=== PATIENT | female | born 1955 | race Caucasian/White ===

== ENCOUNTER 2017-06-07 11:26 | Emergency (ER) | payer BC ==
--- NOTE | 2017-06-07 12:35 | ED ---
Lower Extremity Injury HPI - General Chief Complaint: Extremity Injury, Lower Stated Complaint: RT ANKLE INJURY Time Seen by Provider: 06/07/17 12:07 Source: patient Mode of arrival: wheelchair Limitations: no limitations - History of Present Illness Initial Comments: This is a 61 year old female who presents with right ankle pain which began after the patient fell on the stairs at approximately 8:15 this morning. The patient states that she heard and felt a "crack" noise at her ankle when she fell. She states the pain is localized to the lateral aspect of her right ankle. She denies head injury or any additional injury with this fall. She is able to ambulate, but with pain. - Related Data Allergies Allergy/AdvReac Type Severity Reaction Status Date / Time No Known Allergies Allergy Verified 06/07/17 11:48 Review of Systems ROS Statement: Those systems with pertinent positive or pertinent negative responses have been documented in the HPI. ROS Other: All systems not noted in ROS Statement are negative. Past Medical History Past Medical History: Hypertension History of Any Multi-Drug Resistant Organisms: None Reported Past Surgical History: Hysterectomy Past Psychological History: No Psychological Hx Reported Smoking Status: Never smoker Past Alcohol Use History: None Reported Past Drug Use History: None Reported General Exam Limitations: no limitations General appearance: alert, in no apparent distress Head exam: Present: atraumatic, normocephalic, normal inspection Eye exam: Present: normal appearance, PERRL, EOMI. Absent: scleral icterus, conjunctival injection, periorbital swelling Respiratory exam: Present: normal lung sounds bilaterally. Absent: respiratory distress, wheezes, rales, rhonchi, stridor Cardiovascular Exam: Present: regular rate, normal rhythm, normal heart sounds. Absent: systolic murmur, diastolic murmur, rubs, gallop, clicks Extremities exam: Present: other (Neurovascular grossly intact. The patient has bilateral lower extremity edema. There is no notable ecchymoses present. Tender to palpation over the right lateral malleolus. Pain in the right lateral ankle with flexion, extension, inversion and eversion of the right foot. no proximal tib/fib tenderness) Neurological exam: Present: alert Psychiatric exam: Present: normal affect, normal mood Skin exam: Present: warm, dry, intact, normal color. Absent: rash Course Vital Signs 06/07/17 11:45 Temperature 97.7 F Pulse Rate 80 Respiratory 20 Rate Blood Pressure 171/88 O2 Sat by Pulse 99 Oximetry Procedures - Orthopedic Splinting/Casting Injury #1 Side: right Lower Extremity Injury Location: short leg, ankle Lower Extremity Immobilizer: posterior splint, synthetic pre-padded splint Other Orthopedic Equipment: walker Additional Comments: Neurovascular intact before and after procedure Medical Decision Making - Medical Decision Making 61-year-old female presented for a fall. Patient's x-rays were reviewed and shows fibular fracture, severe degenerative changes. Patient was splinted it is will follow-up with Dr. Morfin as she seen in the past. Patient will use a walker that she has at home. Disposition Clinical Impression: Closed right ankle fracture Disposition: HOME SELF-CARE Condition: Stable Instructions: Ankle Fracture (ED) Additional Instructions: Please return to the Emergency Department if symptoms worsen or any other concerns. Referrals: Jay Hazel DO [Primary Care Provider] - 1-2 days Delroy Morfin DO [Doctor of Osteopathic Medicine] - 1-2 days Time of Disposition: 13:06
[2017-06-07 13:17] VITALS: BP 165/80; PULSE 86; RESP 18; TEMP 97.8
--- NOTE | 2017-06-07 13:18 | XR ---
Right foot and right ankle HISTORY: Trauma and pain 3 views of the right foot and 3 views of the right ankle are submitted. No comparisons Degenerative changes present at the metatarsophalangeal joint of the first digit. Marked soft tissue swelling noted at the right ankle. Ossific densities about the right ankle are well-corticated and no t felt likely to be acute. Spurring at the tibiotalar joint is present. There is a vague lucency pres ent within the distal metaphysis of the right fibula suspicious for possible nondisplaced fracture. T here is no dislocation. There is a plantar calcaneal spur. Spurring present at the intertarsal joints . There is an enthesophyte present at the insertion of the Achilles tendon. IMPRESSION: Difficult to exclude hairline fracture distal fibula. There is soft tissue swelling prese nt. Degenerative changes. No dislocation.
== END 2017-06-07 13:18 | disposition home or self-care (01) ==
LOC: EC 11:26
DX: S82.831A Other fracture of upper and lower end of right fibula, initial encounter for closed fracture (principal); W10.9XXA Fall (on) (from) unspecified stairs and steps, initial encounter
CPT/HCPCS: 29515; 99283

== ENCOUNTER → 2018-01-19 | Outpatient (CLI) | payer BC ==
--- NOTE | 2018-01-22 13:37 | MM ---
Reason for exam: screening (asymptomatic). Last mammogram was performed 2 years and 2 months ago. History: Patient is postmenopausal and is nulliparous. Core biopsy of the right breast. 2 excisional biopsies of the right breast. Physical Findings: A clinical breast exam by your physician is recommended on an annual basis and results should be correlated with mammographic findings. MG 3D Screening Mammo W/Cad Bilateral CC and MLO view(s) were taken. Prior study comparison: November 17, 2015, bilateral MG screening mammo w CAD. February 18, 2013, bilateral digital screening mammo w/CAD. The breast tissue is heterogeneously dense. This may lower the sensitivity of mammography. Benign calcifications in the left breast. There is chronic nodularity bilaterally. No significant changes when compared with prior studies. ASSESSMENT: Benign, BI-RAD 2 RECOMMENDATION: Routine screening mammogram of both breasts in 1 year.
== END | disposition home or self-care (01) ==
LOC: RADMAMWWP 09:27
PROVIDERS: ATTEND Family Medicine
DX: Z12.31 Encounter for screening mammogram for malignant neoplasm of breast (principal)
CPT/HCPCS: 77063; 77067

== ENCOUNTER → 2018-02-09 | Outpatient (CLI) | payer BC | END | disposition home or self-care (01) | LOC: RADBDWWP 07:09 | PROVIDERS: ATTEND Family Medicine | DX: Z53.9 Procedure and treatment not carried out, unspecified reason (principal) ==

== ENCOUNTER → 2018-02-12 | Outpatient (CLI) | payer BC ==
--- NOTE | 2018-02-13 18:07 | BD ---
EXAMINATION TYPE: Axial Bone Density DATE OF EXAM: 02/12/2018 COMPARISON: NONE CLINICAL HISTORY: 57-year-old female with OA, postmenopausal screening Height: 65.5 Weight: 287.9 FRAX RISK QUESTIONS: Alcohol (3 or more units per day): no Family History (Parent hip fracture): mother Glucocorticoids (More than 3mos): no (Ex: prednisone, prednisolone, methylprednisolone, dexamethasone, and hydrocortisone). History of Fracture in Adulthood: yes Secondary Osteoporosis: 1. Type 1 Diabetes: no 2. Hyperthyroidism: no 3. Menopause before 45: no 4. Malnutrition: no 5. Chronic liver disease: no Rheumatoid Arthritis: no Current Tobacco Use: no RISK FACTORS HISTORY OF: Active: sometimes Diet low in dairy products/other sources of calcium: no Postmenopausal woman: 5 years ago Lost more than 2 inches in height since high school: yes MEDICATIONS: blood pressure meds Additional History: EXAM MEASUREMENTS: Bone mineral densitometry was performed using the [employer]. Bone mineral density as measured about the Lumbar spine is: ----- L1-L4(G/cm2): 1.340 T Score Values are as follows: ----- L2: 1.0 ----- L3: 2.0 ----- L4: 2.4 ----- L1-L4: 1.3 Bone mineral density has: increased5.8 % since study of: 02.18.2013 Bone mineral density about the R hip (g/cm2): 0.950 Bone mineral density about the L hip (g/cm2): 0.926 T Score values are as follows: -----R Neck: -0.6 -----L Neck: -0.8 -----R Total: 0.3 -----L Total: 0.3 Bone mineral density has: decreased-1.1 % since study of: 02.18.2013 IMPRESSION: Normal (Values between +1 and -1 indicate normal bone mass). Consider repeating this study in 5 year s or sooner if there is some new clinical indication. NOTE: T-SCORE=SD OF THE YOUNG ADULT MEAN.
== END | disposition home or self-care (01) ==
LOC: RADBDWWP 10:44
PROVIDERS: ATTEND Family Medicine
DX: M19.90 Unspecified osteoarthritis, unspecified site (principal)
CPT/HCPCS: 77080

== ENCOUNTER 2018-07-02 13:00 | Emergency (ER) | payer BC ==
[2018-07-02 13:09] VITALS: BP 151/98; PULSE 88; RESP 18; TEMP 97.3
--- NOTE | 2018-07-02 13:24 | ED ---
Fall HPI - General Chief Complaint: Fall Stated Complaint: Fall, leg injury Time Seen by Provider: 07/02/18 13:18 Source: patient, RN notes reviewed Mode of arrival: ambulatory Limitations: no limitations - History of Present Illness Initial Comments: 62-year-old female presented emergency department with chief complaint of right knee right ankle injury. Patient states that she slipped on the ice falling onto that side. She complains of lateral right ankle pain. Patient states she had a fracture 1 year ago of the same ankle. Patient states her repeat physician is Dr. Morfin. She denies any head injury no hip pain. Patient offers no other complaints. - Related Data Allergies Allergy/AdvReac Type Severity Reaction Status Date / Time No Known Allergies Allergy Verified 07/02/18 13:09 Review of Systems ROS Statement: Those systems with pertinent positive or pertinent negative responses have been documented in the HPI. ROS Other: All systems not noted in ROS Statement are negative. Past Medical History Past Medical History: Hypertension History of Any Multi-Drug Resistant Organisms: None Reported Past Surgical History: Hysterectomy Past Psychological History: No Psychological Hx Reported Smoking Status: Never smoker Past Alcohol Use History: None Reported Past Drug Use History: None Reported General Exam Limitations: no limitations General appearance: alert, in no apparent distress Head exam: Present: atraumatic, normocephalic, normal inspection Neck exam: Present: normal inspection, full ROM. Absent: tenderness, meningismus, lymphadenopathy Respiratory exam: Present: normal lung sounds bilaterally. Absent: respiratory distress, wheezes, rales, rhonchi, stridor Cardiovascular Exam: Present: regular rate, normal rhythm, normal heart sounds. Absent: systolic murmur, diastolic murmur, rubs, gallop, clicks Extremities exam: Present: other (Right knee there is tenderness to lateral posterior portion over the fibular head region, right ankle tenderness with evidence of swelling neurovascular intact no foot tenderness.) Neurological exam: Present: alert, oriented X3, CN II-XII intact Skin exam: Present: warm, dry, intact, normal color. Absent: rash Course Vital Signs 07/02/18 13:06 Temperature 97.3 F L Pulse Rate 88 Respiratory 18 Rate Blood Pressure 151/98 O2 Sat by Pulse 98 Oximetry Medical Decision Making - Medical Decision Making 62-year-old female presented emergency from for right ankle, right knee injury. Patient had x-rays which shows evidence of right fibula fracture. Patient was placed in her walking boot that she had for her prior fracture. Disposition Clinical Impression: Fall, Right fibular fracture Disposition: HOME SELF-CARE Condition: Stable Instructions (If sedation given, give patient instructions): Leg Fracture (ED) Additional Instructions: Please return to the Emergency Department if symptoms worsen or any other concerns. Is patient prescribed a controlled substance at d/c from ED?: No Referrals: Jay Hazel DO [Primary Care Provider] - 1-2 days Delroy Morfin DO [Doctor of Osteopathic Medicine] - 1-2 days Time of Disposition: 14:39
--- NOTE | 2018-07-02 13:46 | XR ---
EXAMINATION TYPE: XR knee complete RT DATE OF EXAM: 07/02/2018 COMPARISON: NONE HISTORY: Pain TECHNIQUE: Four views are submitted. FINDINGS: Hypertrophic change and narrowing patellofemoral joint. Small amount of fluid in the suprapatellar bu rsa. Small density overlying the joint space could represent small loose body. No definite fracture l ine. Osseous structures are intact. No acute fracture seen. IMPRESSION: 1. No acute fracture or dislocation. 2. Arthropathy.
--- NOTE | 2018-07-02 13:49 | XR ---
EXAMINATION TYPE: XR ankle complete RT DATE OF EXAM: 07/02/2018 COMPARISON: 06/07/2017 HISTORY: Pain FINDINGS: Three views of the ankle demonstrate extensive soft tissue edema. There is be a mildly displaced frac ture involving the distal fibula. Soft tissue ossification evidence of previous trauma involving the medial malleolus. There is narrowing of the ankle mortise. Large calcaneal spurs are noted. IMPRESSION: 1. There is a comminuted minimally displaced fracture involving the distal fibula 2. Extensive soft tissue edema.
== END 2018-07-02 15:03 | disposition home or self-care (01) ==
LOC: EC 13:00
DX: S82.401A Unspecified fracture of shaft of right fibula, initial encounter for closed fracture (principal); W00.0XXA Fall on same level due to ice and snow, initial encounter; Y92.009 Unspecified place in unspecified non-institutional (private) residence as the place of occurrence of the external cause
CPT/HCPCS: 99283

== ENCOUNTER → 2018-11-02 | Outpatient (CLI) | payer BC ==
--- NOTE | 2018-11-02 19:53 | EST ---
EXERCISE STRESS AGE: 62 SEX: Female HT: 5'7" WT: 282 pounds PROTOCOL: Kevin STAGE: I DURATION OF EXERCISE: 3:09 HEART RATE REST: 69 BLOOD PRESSURE REST: 147/63 MAXIMUM HEART RATE ACHIEVED: 107 MAXIMUM BLOOD PRESSURE: 202/64 85% MPHR: 135 100% MPHR: 159 METS: 4.6 INDICATIONS: Chest pain, hypertension. CLINICAL INFORMATION: Baseline rhythm is a sinus mechanism, rate of 69, normal axis, poor R-wave progression, minor nonspecific ST-T wave changes. Baseline blood pressure 147/63 mmHg. Patient exercised on Kevin protocol for 3 minutes 9 seconds, reaching a peak rate of 107 beats per minute, which is equal to 67% of maximum predicted heart rate. Peak blood pressure 202/64 mmHg. Test was terminated secondary to fatigue. There was no chest pain. Electrocardiograph monitoring revealed no evidence of diagnostic ischemic ST deviation. CONCLUSION: 1. Poor exercise tolerance. 2. Non-diagnostic electrocardiograph stress testing secondary to the inability to achieve 85% of maximum predicted heart rate. 3. If clinically indicated, a pharmacological stress test will be helpful. MMODL / IJN: [id number] /
== END | disposition home or self-care (01) ==
LOC: RADNMMAIN 10:15
PROVIDERS: ATTEND Family Medicine
DX: R07.9 Chest pain, unspecified (principal)
CPT/HCPCS: 93017

== ENCOUNTER → 2018-11-30 | Outpatient (CLI) | payer BC ==
[~2018-11-30] MED LIST: REGADENOSON 0.4 MG/5 ML SYRINGE IV ONE
--- NOTE | 2018-11-30 11:12 | NM ---
EXAMINATION TYPE: NM stress lexiscan cardiolite DATE OF EXAM: 11/30/2018 COMPARISON: NONE HISTORY: Chest pain TECHNIQUE: After the intravenous administration of 9.9 mCi Tc 99m Sestamibi - Cardiolite resting SPE CT images acquired 50 minutes post injection. The patient received 0.4mg Lexiscan, 26.3 mCi Tc 99m Sestamibi - Stress images obtained [address] injection FINDINGS: Review of stress and rest SPECT images demonstrates no distinct perfusion abnormality. Gated analysi s shows normal wall motion with an estimated left ventricular ejection fraction of 59 %. IMPRESSION: No scintigraphic evidence for reversible ischemia.
--- NOTE | 2018-11-30 11:37 | ECHOF ---
Referral Reason:R07.9 Chest Pain, I10 Hypertension MEASUREMENTS -------- HEIGHT: 167.6 cm WEIGHT: 127.0 kg BP: IVSd: 1.1 cm (0.6 - 1.1) LVIDd: 4.8 cm (3.9 - 5.3) LVPWd: 1.2 cm (0.6 - 1.1) IVSs: 2.1 cm LVIDs: 2.2 cm LVPWs: 1.6 cm LAESV Index (A-L): 28.02 ml/m Ao Diam: 3.0 cm (2.0 - 3.7) AV Cusp: 2.1 cm (1.5 - 2.6) LA Diam: 3.2 cm (2.7 - 3.8) MV EXCURSION: 15.965 mm (> 18.000) MV EF SLOPE: 109 mm/s (70 - 150) EPSS: 1.1 cm MV E Asm: 0.76 m/s MV DecT: 280 ms MV A Sam: 0.84 m/s MV E/A Ratio: 0.90 RAP: 15.00 mmHg RVSP: 29.00 mmHg FINDINGS -------- Sinus rhythm. This was a technically adequate study. The left ventricular size is normal. There is borderline concentric left ventricular hypertrophy. Overall left ventricular systolic function is normal with, an EF between 55 - 60 %. The right ventricle is normal in size. The left atrial size is normal. Normal LA size by volume 22+/-6 ml/m2. The right atrial size is normal. The aortic valve is trileaflet and appears structurally normal. The mitral valve is normal. There is trace mitral regurgitation. The tricuspid valve appears structurally normal. Trace tricuspid regurgitation present. Right sherry tricular systolic pressure is normal at < 35 mmHg. There is no pulmonic regurgitation present. The aortic root size is normal. The inferior vena cava is mildly dilated. There is no pericardial effusion. CONCLUSIONS -------- 1. Sinus rhythm. 2. This was a technically adequate study. 3. The left ventricular size is normal. 4. There is borderline concentric left ventricular hypertrophy. 5. Overall left ventricular systolic function is normal with, an EF between 55 - 60 %. 6. The right ventricle is normal in size. 7. The left atrial size is normal. 8. Normal LA size by volume 22+/-6 ml/m2. 9. The right atrial size is normal. 10. The aortic valve is trileaflet and appears structurally normal. 11. The mitral valve is normal. 12. There is trace mitral regurgitation. 13. The tricuspid valve appears structurally normal. 14. Trace tricuspid regurgitation present. 15. Right ventricular systolic pressure is normal at < 35 mmHg. 16. There is no pulmonic regurgitation present. 17. The aortic root size is normal. 18. The inferior vena cava is mildly dilated. 19. There is no pericardial effusion. REFUND CLERK: Katie Dumont RDCS
--- NOTE | 2018-11-30 11:58 | P.STRESS ---
- Stress Test Note Stress Test Results/Findings: Exam Performed: NM stress lexiscan cardiolite Exam Date: 11/30/18 Reason for Exam: Hypertension Height: 5 ft 7 in Weight: 127.006 kg Protocol: Lexiscan Stage: na Duration of Exercise: na Resting Heart Rate: 57 Resting Blood Pressure: 136/79 Maximum Achieved Heart Rate: 72 Maximum Achieved Blood Pressure: 143/79 85% PMHR: 134 100% PMHR: 158 METS: na Technologist Comment: Stress Test Results/Findings: This is a 63-year-old female with history of hypertension and family history being evaluated for cardiac status. Stress data: Baseline EKG showed sinus rhythm with normal [place] interval, QRS duration. Blood pressure at rest is 136/79 with pulse rate of 57. A standard dose of Lexiscan was infused. EKGs taken during and after the infusion did not reveal significant changes from the baseline. Final impression: #1. Negative Lexiscan stress test #2. Report on the nuclear images to be given by the radiologist
--- NOTE | 2018-12-03 14:00 | EST ---
Stress Test Results/Findings: Exam Performed: NM stress lexiscan cardiolite Exam Date: 11/30/18 Reason for Exam: Hypertension Height: 5 ft 7 in Weight: 127.006 kg Protocol: Lexiscan Stage: na Duration of Exercise: na Resting Heart Rate: 57 Resting Blood Pressure: 136/79 Maximum Achieved Heart Rate: 72 Maximum Achieved Blood Pressure: 143/79 85% PMHR: 134 100% PMHR: 158 METS: na Technologist Comment: Stress Test Results/Findings: This is a 63-year-old female with history of hypertension and family history being evaluated for cardiac status. Stress data: Baseline EKG showed sinus rhythm with normal [place] interval, QRS duration. Blood pressure at rest is 136/79 with pulse rate of 57. A standard dose of Lexiscan was infused. EKGs taken during and after the infusion did not reveal significant changes from the baseline. Final impression: #1. Negative Lexiscan stress test #2. Report on the nuclear images to be given by the radiologist DAVID
== END | disposition home or self-care (01) ==
LOC: RADNMMAIN 08:00
PROVIDERS: ATTEND Family Medicine
DX: I51.7 Cardiomegaly (principal)
CPT/HCPCS: 93017; 93306; 78452; A9500; J2785

== ENCOUNTER 2019-10-10 15:22 | Emergency (ER) | payer BC ==
[2019-10-10 15:33] VITALS: BP 137/77; PULSE 90; RESP 18; TEMP 98.2
--- NOTE | 2019-10-10 16:55 | XR ---
Right knee HISTORY: Right knee pain 3 views of the right knee, correlation prior exam 07/02/2018 There is spurring at the patellofemoral joint, small ossific density present at the level of the inte rcondylar notch is noted, possibly secondary loose body on the oblique view. Alignment is normal and medial lateral compartments show normal joint spaces, minimal spurring in the medial compartment. No evident joint effusion. No fracture or dislocation. There is no fracture or dislocation. Bone mineralization is reduced. IMPRESSION: Osteoarthritis. Possible loose bodies.
--- NOTE | 2019-10-10 17:10 | ED ---
General Adult HPI - General Chief complaint: Extremity Injury, Lower Stated complaint: knee pain/gave out Time Seen by Provider: 10/10/19 15:30 Source: patient, RN notes reviewed, old records reviewed Mode of arrival: wheelchair Limitations: no limitations - History of Present Illness Initial comments: This is a 63-year-old female presents to the emergency department complaining of right knee pain. Patient states a week ago it gave away on her but since then she's been able to ambulate fine without any problem. Patient states today she was walking and felt a pain just below her kneecap on the right knee and felt as though it made a cracking sound. Patient states since then she has felt weak and that knee. Patient states she's hesitant to put full weight bearing on that knee. Patient states she does have a walker at home. Patient states she did not fall earlier. Patient denies any other injury or pain at this time - Related Data Allergies Allergy/AdvReac Type Severity Reaction Status Date / Time No Known Allergies Allergy Verified 10/10/19 15:32 Review of Systems ROS Statement: Those systems with pertinent positive or pertinent negative responses have been documented in the HPI. ROS Other: All systems not noted in ROS Statement are negative. Past Medical History Past Medical History: Hypertension History of Any Multi-Drug Resistant Organisms: None Reported Past Surgical History: Hysterectomy Past Psychological History: No Psychological Hx Reported Smoking Status: Never smoker Past Alcohol Use History: None Reported Past Drug Use History: None Reported General Exam - General Exam Comments Initial Comments: GENERAL Patient is well-developed and well-nourished. Patient is in mild distress. EYES Patient's pupils are equal and round. Extraocular motion is intact SKIN Unremarkable NEURO The patient is alert and oriented 3 PYSCH Patient has normal interpersonal interactions. MUSCULOSKELETAL Just below the right patellar in the patellar tendon area patient has tenderness to palpation. There is no ligament laxity noted. Limitations: no limitations Course Vital Signs 10/10/19 15:29 Temperature 98.2 F Pulse Rate 90 Respiratory 18 Rate Blood Pressure 137/77 O2 Sat by Pulse 97 Oximetry Disposition Clinical Impression: Knee sprain Disposition: HOME SELF-CARE Instructions (If sedation given, give patient instructions): Knee Sprain (ED) Additional Instructions: Patient should use a walker and weight-bear as tolerated. Patient should follow-up with her primary medical care doctor. Patient can take Motrin when necessary for pain. Is patient prescribed a controlled substance at d/c from ED?: No Referrals: Jay Hazel DO [Primary Care Provider] - 1-2 days Time of Disposition: 17:10
== END 2019-10-10 17:29 | disposition home or self-care (01) ==
LOC: EC 15:22
DX: S83.91XA Sprain of unspecified site of right knee, initial encounter (principal); X58.XXXA Exposure to other specified factors, initial encounter; Y93.01 Activity, walking, marching and hiking
CPT/HCPCS: 99284

== ENCOUNTER → 2019-11-11 | Outpatient (CLI) | payer BC ==
--- NOTE | 2019-11-12 08:35 | MM ---
Reason for exam: screening (asymptomatic). Last mammogram was performed 1 year and 10 months ago. History: Patient is postmenopausal and is nulliparous. Core biopsy of the right breast. 2 excisional biopsies of the right breast. Physical Findings: A clinical breast exam by your physician is recommended on an annual basis and results should be correlated with mammographic findings. MG Screening Mammo w CAD Bilateral CC and MLO view(s) were taken. Prior study comparison: January 19, 2018, bilateral MG 3d screening mammo w/cad. November 17, 2015, bilateral MG screening mammo w CAD. The breast tissue is heterogeneously dense. This may lower the sensitivity of mammography. Stable benign calcifications. There is chronic nodularity in the right breast. No significant changes when compared with prior studies. ASSESSMENT: Benign, BI-RAD 2 RECOMMENDATION: Routine screening mammogram of both breasts in 1 year.
== END | disposition home or self-care (01) ==
LOC: RADMAMWWP 10:32
PROVIDERS: ATTEND Family Medicine
DX: Z12.31 Encounter for screening mammogram for malignant neoplasm of breast (principal)
CPT/HCPCS: 77067

== ENCOUNTER → 2019-11-12 | Outpatient (CLI) | payer BC ==
--- NOTE | 2019-11-12 18:22 | MR ---
EXAMINATION TYPE: MR knee RT wo con DATE OF EXAM: 11/12/2019 COMPARISON: None HISTORY: 63-year-old female with right knee pain TECHNIQUE: Multiplanar, multisequence imaging of the right knee is performed without IV contrast. FINDINGS: The ACL and PCL appear intact. Edema on either side of the intact MCL fibers. Additional heterogeneity and increased signal at the femoral attachment of the LCL proper. LCL comple x otherwise intact. Horizontal cleavage tear extending throughout the body of the medial meniscus with moderate diffuse t hinning of medial compartment articular cartilage volume. Oblique tear involving the body of the lateral meniscus as well as a peripheral longitudinal tear of the posterior horn at the insertion of the meniscal femoral ligament, refer to sagittal image 22. Moderate to severe irregular cartilage loss within the mid weightbearing and mid peripheral aspect of the lateral compartment. Some reactive marrow edema along the lateral lip of the tibial plateau. Moderate to severe irregular cartilage loss along the mid patella and medial patellar facet and moder ate irregular cartilage loss along the lateral patellar facet. Marginal spurring is present. Moderate diffuse thinning of trochlear articular cartilage volume. Large knee joint effusion. Some mild extravasation of joint fluid in the deep soft tissues. A tiny 1. 6 cm De La Cruz's cyst. Marked generalized muscular atrophy. Extensor mechanism appears intact. Anterior soft tissue swelling. Patchy red marrow is present. No suspicious bone marrow replacement. Normal popliteal artery anatomy. IMPRESSION: 1. Grade 1 sprains of the MCL and proximal LCL proper. 2. Horizontal cleavage tear body of the medial meniscus. Mild overall medial compartmental osteoarthr osis. 3. Oblique tear body of the lateral meniscus as well as a peripheral longitudinal tear of the posteri or horn at the insertion of the meniscofemoral ligament. Moderate overall lateral compartmental osteo arthrosis. 4. Moderate overall patellofemoral compartmental osteoarthrosis. 5. Large knee joint effusion. Deep soft tissue edema likely reflects some joint fluid extravasation. Tiny 1.6 cm De La Cruz's cyst. Generalized muscle atrophy.
== END | disposition home or self-care (01) ==
LOC: RADMRIMAIN 12:42
PROVIDERS: ATTEND Orthopaedic Surgery
DX: S83.241A Other tear of medial meniscus, current injury, right knee, initial encounter (principal); S83.281A Other tear of lateral meniscus, current injury, right knee, initial encounter; M17.11 Unilateral primary osteoarthritis, right knee; M79.89 Other specified soft tissue disorders; M62.50 Muscle wasting and atrophy, not elsewhere classified, unspecified site

== ENCOUNTER → 2019-11-29 | Outpatient (CLI) | payer BC ==
[2019-11-29 14:01] LABS: Basophils % (A) 1 %; Eosinophils # (A) 0.1 k/uL (0-0.7); Eosinophils % (A) 2 %; HCT 38.2 % (34.0-46.0); HGB 12.3 gm/dL (11.4-16.0); Lymphocytes # (A) 2.2 k/uL (1.0-4.8); Lymphocytes % (A) 29 %; MCH 28.2 pg (25.0-35.0); MCHC 32.2 g/dL (31.0-37.0); MCV 87.8 fL (80.0-100.0); Mean Platelet Volume 7.2; Monocytes # (A) 0.4 k/uL (0-1.0); Monocytes % (A) 6 %; Neutrophils # (A) 4.6 k/uL (1.3-7.7); Neutrophils % (A) 60 %; Platelet Count 263 k/uL (150-450); RBC 4.35 m/uL (3.80-5.40); RDW 13.6 % (11.5-15.5); WBC 7.6 k/uL (3.8-10.6)
[2019-11-29 14:06] LABS: Potassium 4.2 mmol/L (3.5-5.1)
== END | disposition home or self-care (01) ==
LOC: LABPAT 12:23
PROVIDERS: ATTEND Orthopaedic Surgery
DX: Z01.818 Encounter for other preprocedural examination (principal); M23.91 Unspecified internal derangement of right knee
CPT/HCPCS: 80051; 85025; 93005

== ENCOUNTER 2019-12-05 10:12 | Day surgery (SDC) | payer BC ==
[2019-12-04 12:03] VITALS: BMI 43.0
--- NOTE | 2019-12-04 17:15 | HP ---
HISTORY AND PHYSICAL DATE OF SURGERY: 12/05/2019 Angelica Dc is a 64-year-old patient seen with progressive right knee pain. We discussed options for treatment. She elected to proceed with arthroscopy. Consent was obtained. PAST MEDICAL HISTORY: Hypertension. PAST SURGICAL HISTORY: Hysterectomy. MEDICATIONS: Carvedilol. ALLERGIES: None. SOCIAL HISTORY: She denies tobacco use. PHYSICAL EVALUATION RIGHT KNEE: Range of motion is -2/3 to 110. There is a mild effusion. Tenderness medial joint line, tenderness lateral joint line. Positive medial Julio's. Positive lateral Julio's. Ligaments are stable. Hip rotation is without pain. Her distal neurovascular exam is intact. RADIOGRAPHS: Radiographs of the right knee revealed mild medial and lateral osteoarthritis as well as moderate patellofemoral compartment osteoarthritis. MRI of the right knee revealed medial and lateral meniscal tears, osteoarthritic changes and a large joint effusion. IMPRESSION: 1. Internal derangement, right knee with medial and lateral meniscal tears. 2. Right knee osteoarthritis. 3. Hypertension. PLAN: Right knee arthroscopy with partial meniscectomy, partial synovectomy and debridement. MMODL / IJN: [id number] /
[~2019-12-05 10:12] MED LIST changes: +LACTATED RINGERS 1,000 ML IV SCH; +ONDANSETRON 4 MG/2 ML VIAL IVP ONE; -REGADENOSON 0.4 MG/5 ML SYRINGE IV ONE; +ceFAZolin 3 GM in SODIUM CHLORIDE 0.9% 100 ML IVPB ONE; +fentaNYL (PF) 50 MCG/ML 2 ML AMP IV PRN
[2019-12-05] MEDS ORDERED: ONDANSETRON 4 MG/2 ML VIAL ONE (10:44)
[2019-12-05] MEDS ORDERED: SUCCINYLCHOLINE CHLORIDE 100 MG/5 ML SYR IV ONE (12:09)
[2019-12-05] MEDS ORDERED: LIDOCAINE 1% INJ 10MG/ML (20 ML MDV) ONE (12:09)
[2019-12-05] MEDS ORDERED: MIDAZOLAM 2 MG/2 ML VIAL ONE (12:09)
[2019-12-05] MEDS ORDERED: PROPOFOL 10 MG/ML 20 ML VIAL IV ONE (12:09)
[2019-12-05] MEDS ORDERED: fentaNYL (PF) 50 MCG/ML 2 ML AMP ONE (12:09)
[2019-12-05] MEDS ORDERED: BUPIVACAIN-EPI 0.25%-1:200,000 30 ML VIAL SQ ONE (12:35)
[2019-12-05 13:03] VITALS: TEMP 96.9
[2019-12-05] MEDS ORDERED: ONDANSETRON 4 MG/2 ML VIAL IVP ONE (13:06)
[2019-12-05] MEDS ORDERED: HYDROmorphone 1 MG/ML 1 ML SYRINGE IVP ONE (13:10)
--- NOTE | 2019-12-05 13:10 | P.OP ---
Date of Procedure: 12/05/19 Preoperative Diagnosis: Internal derangement right knee Postoperative Diagnosis: 1. Tear lateral meniscus right knee 2. Grade 3 chondromalacia medial femoral condyle right knee 3. Grade 2/3 chondromalacia lateral femoral condyle right knee 4. Reactive synovitis medial, lateral and suprapatellar compartments right knee Procedure(s) Performed: 1. Arthroscopic partial lateral meniscectomy right knee 2. Arthroscopic chondroplasty medial femoral condyle right knee 3. Arthroscopic chondroplasty lateral femoral condyle right knee 4. Arthroscopic partial synovectomy medial, lateral and suprapatellar compartments right knee Anesthesia: [facility]AA, local Surgeon: Delroy Morfin Estimated Blood Loss (ml): 7 Pathology: none sent Condition: stable Disposition: PACU Indications for Procedure: 64-year-old patient seen with progressive right knee pain. After treatment options were discussed, she elected to proceed with arthroscopy. Operative Findings: See description of procedure Description of Procedure: Patient was taken to the operative suite. Patient underwent a general anesthetic by the department of anesthesia. Patient was given preoperative antibiotics. The right lower extremity was placed in a well-padded arthroscopic leg nicolas. The right leg was prepped and draped in the normal sterile orthopedic fashion. A lateral parapatellar and suprapatellar incision was made. Trochars were inserted. Arthroscopy was initiated. Suprapatellar pouch revealed diffuse thick reactive synovitis. The patellofemoral joint appeared to articulate congruently. There was grade 2/3 chondromalacia of the patella with no osteochondral tears present. The scope was guided into the medial gutter. No loose bodies or plica were identified. The scope was then guided into the medial compartment. A medial parapatellar incision was made. Trocar inserted followed by probe. There were grade 3 chondral malacia changes of the medial femoral condyle with some large osteochondral flap tears. There was some fraying along the posterior horn medial meniscus. There was thick reactive synovitis anteriorly. I performed a synovectomy decompressing reactive synovitis. I debrided that superficial fraying along the posterior horn of the medial meniscus. There was good decompression of synovitis. The scope and probe were then guided into the intercondylar notch. Cruciates were identified, probed and found to be stable. The scope and probe were then guided into lateral compartment. There was a fairly large tear along the anterior horn lateral meniscus extending into the midbody. There were grade 3/4 chondral malacia changes along the anterior aspect of the tibial plateau and grade 2/3 chondromalacia changes of the lateral femoral condyle with some osteochondral flap tears present. There was thick reactive synovitis anteriorly. I performed a partial lateral meniscectomy. I performed a chondroplasty lateral femoral condyle. I performed a partial synovectomy decompressing reactive synovitis. The residual meniscus was stable. The residual osteochondral surface was stable. There was good decompression of synovitis. The scope was in guided back into the suprapatellar compartment. I introduced a motorized shaver into the super compartment. I debrided some piecemeal fragments of meniscus I encountered. I performed a partial synovectomy decompressing reactive synovitis. The shaver was removed. I took one more look on the entire knee, no residual debris. Instruments were now removed from the joint. The joint was infiltrated with .25% Marcaine. Steri-Strips were applied to the portal sites. Sterile dressings were applied. The patient was placed into a JOSE hose. No tourniquet was utilized. The patient was awakened, transferred to a bed and taken to recovery stable satisfactory condition.
[2019-12-05 14:16] VITALS: RESP 16
[2019-12-05 14:49] VITALS: BP 143/74; PULSE 58
== END 2019-12-05 15:30 | disposition home or self-care (01) ==
LOC: OR 10:12
PROVIDERS: ATTEND Orthopaedic Surgery
DX: S83.241A Other tear of medial meniscus, current injury, right knee, initial encounter (principal); X58.XXXA Exposure to other specified factors, initial encounter; M94.261 Chondromalacia, right knee; M65.861 Other synovitis and tenosynovitis, right lower leg; M22.41 Chondromalacia patellae, right knee; I10 Essential (primary) hypertension; Z90.710 Acquired absence of both cervix and uterus; M17.11 Unilateral primary osteoarthritis, right knee; E66.01 Morbid (severe) obesity due to excess calories; Z68.41 Body mass index [BMI] 40.0-44.9, adult; Z98.890 Other specified postprocedural states; Z79.899 Other long term (current) drug therapy
CPT/HCPCS: 29881; J2250; J0690; J2405; J2001; J3010; J1170; J0330; J2704

== ENCOUNTER 2021-02-17 16:53 | Inpatient (IN) | payer BC ==
--- NOTE | 2021-02-17 17:49 | ED ---
General Adult HPI - General Source: patient, RN notes reviewed Mode of arrival: ambulatory Limitations: no limitations <Xavi Posada - Last Filed: 02/17/21 17:47> <Helio Blue - Last Filed: 02/17/21 21:18> <Jono Trammell - Last Filed: 02/17/21 23:58> - General Stated complaint: SOB, abd swelling Time Seen by Provider: 02/17/21 17:30 - History of Present Illness Initial comments: this is a 65-year-old female presents emergency Department chief complaint of leg swelling, shortness breath, abdominal discomfort. Patient states that this started after having a upper respiratoryre infection. Patient states that she's gained 14 pounds in the last couple weeks. She's had extensive leg swelling, abdominal distention. She does complain of mild pain in her left side of her abdomen does radiate across. She has no history of CHF does not take any diuretics. Patient does complain of mild reflux issues. She states that her shortness breath is worse with exertion. (Xavi Posada) - Related Data Home Medications Medication Instructions Recorded Confirmed Carvedilol [Coreg] 25 mg PO HS 12/04/19 02/17/21 Allergies Allergy/AdvReac Type Severity Reaction Status Date / Time No Known Allergies Allergy Verified 02/17/21 19:07 Review of Systems ROS Other: All systems not noted in ROS Statement are negative. <Xavi Posada - Last Filed: 02/17/21 17:47> ROS Other: All systems not noted in ROS Statement are negative. <Helio Blue - Last Filed: 02/17/21 21:18> ROS Other: All systems not noted in ROS Statement are negative. <Jono Trammell - Last Filed: 02/17/21 23:58> ROS Statement: Those systems with pertinent positive or pertinent negative responses have been documented in the HPI. Past Medical History Past Medical History: Hypertension, Osteoarthritis (OA) Additional Past Medical History / Comment(s): "overactive bladder"-urinary leakage History of Any Multi-Drug Resistant Organisms: None Reported Past Surgical History: Breast Surgery, Hysterectomy Additional Past Surgical History / Comment(s): rt breast lumpectomy(fibroids), left eye intac implant Past Anesthesia/Blood Transfusion Reactions: Previous Problems w/ Anesthesia, Postoperative Nausea & Vomiting (PONV) Additional Past Anesthesia/Blood Transfusion Reaction / Comment(s): "took a long time to come out" Smoking Status: Never smoker - Past Family History Mother Family Medical History: Cancer Father Family Medical History: Cancer Sister(s) Family Medical History: Cancer Brother(s) Family Medical History: Cancer <Xavi Posada - Last Filed: 02/17/21 17:47> General Exam General appearance: alert, obese Head exam: Present: atraumatic, normocephalic, normal inspection Eye exam: Present: normal appearance, PERRL, EOMI. Absent: scleral icterus, conjunctival injection, periorbital swelling ENT exam: Present: normal exam, mucous membranes moist Neck exam: Present: normal inspection. Absent: tenderness, meningismus, lymphadenopathy Respiratory exam: Present: normal lung sounds bilaterally. Absent: respiratory distress, wheezes, rales, rhonchi, stridor Cardiovascular Exam: Present: regular rate, normal rhythm, normal heart sounds. Absent: systolic murmur, diastolic murmur, rubs, gallop, clicks GI/Abdominal exam: Present: soft, normal bowel sounds. Absent: distended, tenderness, guarding, rebound, rigid Extremities exam: Present: normal inspection, full ROM, normal capillary refill. Absent: tenderness, pedal edema, joint swelling, calf tenderness Back exam: Present: normal inspection Neurological exam: Present: alert, oriented X3, CN II-XII intact Psychiatric exam: Present: normal affect, normal mood Skin exam: Present: warm, dry, intact, normal color. Absent: rash <Jono Trammell - Last Filed: 02/17/21 23:58> - General Exam Comments Initial Comments: Significant bilateral lower extremity edema (Jono Trammell) Course <Jono Trammell - Last Filed: 02/17/21 23:58> Vital Signs 02/17/21 02/17/21 17:46 23:18 Temperature 97.6 F Pulse Rate 92 87 Respiratory 16 18 Rate Blood Pressure 136/85 133/87 O2 Sat by Pulse 95 94 L Oximetry - Reevaluation(s) Reevaluation #1: 02/17/21 23:57 Medical records reviewed (Jono Trammell) Reevaluation #2: 02/17/21 23:57 A she is in no respiratory distress (Jono Trammell) Reevaluation #3: 02/17/21 23:57 Patient is informed results and questions are answered (Jono Trammell) Medical Decision Making - Lab Data Result diagrams: 02/17/21 18:03 02/17/21 18:03 <Helio Blue - Last Filed: 02/17/21 21:18> - Lab Data Result diagrams: 02/17/21 18:03 02/17/21 18:03 - Radiology Data Radiology results: report reviewed (CT of the abdomen and pelvis positive for ascites), image reviewed <Jono Trammell - Last Filed: 02/17/21 23:58> - Medical Decision Making Dictation was produced using [employer] dictation software. please excuse any grammatical, word or spelling errors. Chief Complaint: 65-year-old female presents to the emergency department for cough, shortness of breath and left lower quadrant abdominal pain History of Present Illness: Patient is 65-year-old female presents to the emergency department for shortness of breath and left lower quadrant abdominal pain. Patient reports that she has left lower quadrant abdominal pain. States that it is worse with coughing. States that she was coughing when initially started. Patient recently recovered from bronchitis. She completed a course of antibiotic therapy. Patient has a history of heart failure. Denies any fever. No chest pain. Denies any constitutional symptoms. She feels like she is bloated. The ROS documented in this emergency department record has been reviewed and confirmed by me. Those systems with pertinent positive or negative responses have been documented in the HPI. All other systems are other negative and/or noncontributory. PHYSICAL EXAM: General Impression: Alert and oriented x3, not in acute distress HEENT: Normocephalic atraumatic, extra-ocular movements intact, pupils equal and reactive to light bilaterally, mucous membranes moist. Cardiovascular: Heart regular rate and rhythm Chest: Able to complete full sentences, no retractions, no tachypnea, clear to auscultation bilaterally Abdomen: abdomen soft, non-tender, non-distended, no organomegaly Musculoskeletal: Pulses present and equal in all extremities, no peripheral edema Motor: no focal deficits noted Neurological: CN II-XII grossly intact, no focal motor or sensory deficits noted Skin: Intact with no visualized rashes Psych: Normal affect and mood ED course: 65-year-old male presents with shortness of breath and abdominal pain. Vital signs upon arrival are within acceptable limits. Laboratory ariana luation obtained. Mild leukocytosis of 12.0. Coag panel is unremarkable. Metabolic panel is negative. Brain natruretic peptide troponins negative. Patient does not have a history of DVT or PE. She is not tachycardic 9 hypoxic. No suspicion for pulmonary embolus at this time. Chest x-ray shows mild cardiomegaly. Patient reports improvement of her respiratory symptoms. X-ray read as possible patchy right basilar atelectasis. This is likely residual findings from bronchitis. CT ordered. Patient currently sent out to Dr. Zepeda for follow-up of CT imaging. (Helio Blue) 65 female with diffuse anasarca ascites lower extremity edema. We will admit for diuresis and further evaluation of cause of abdominal pain and increased fluid (Jono Trammell) - Lab Data Lab Results 02/17/21 02/17/21 02/17/21 Range/Units 18:03 18:03 18:03 WBC 12.0 H (3.8-10.6) k/uL RBC 4.32 (3.80-5.40) m/uL Hgb 12.1 (11.4-16.0) gm/dL Hct 37.9 (34.0-46.0) % MCV 87.7 (80.0-100.0) fL MCH 28.0 (25.0-35.0) pg MCHC 32.0 (31.0-37.0) g/dL RDW 13.0 (11.5-15.5) % Plt Count 448 (150-450) k/uL MPV 6.8 Neutrophils % 75 % Lymphocytes % 14 % Monocytes % 7 % Eosinophils % 2 % Basophils % 1 % Neutrophils # 9.0 H (1.3-7.7) k/uL Lymphocytes # 1.7 (1.0-4.8) k/uL Monocytes # 0.8 (0-1.0) k/uL Eosinophils # 0.3 (0-0.7) k/uL Basophils # 0.1 (0-0.2) k/uL PT 10.5 (9.0-12.0) sec INR 1.0 (<1.2) APTT 24.5 (22.0-30.0) sec Sodium 138 (137-145) mmol/L Potassium 4.4 (3.5-5.1) mmol/L Chloride 105 (98-107) mmol/L Carbon Dioxide 24 (22-30) mmol/L Anion Gap 9 mmol/L BUN 14 (7-17) mg/dL Creatinine 0.85 (0.52-1.04) mg/dL Est GFR (CKD-EPI)AfAm 84 (>60 ml/min/1.73 sqM) Est GFR (CKD-EPI)NonAf 73 (>60 ml/min/1.73 sqM) Glucose 113 H (74-99) mg/dL Plasma Lactic Acid Manuel (0.7-2.0) mmol/L Calcium 8.8 (8.4-10.2) mg/dL Magnesium 2.2 (1.6-2.3) mg/dL Total Bilirubin 0.5 (0.2-1.3) mg/dL AST 23 (14-36) U/L ALT 12 (4-34) U/L Alkaline Phosphatase 96 (38-126) U/L Troponin I (0.000-0.034) ng/mL NT-Pro-B Natriuret Pep pg/mL Total Protein 6.8 (6.3-8.2) g/dL Albumin 3.4 L (3.5-5.0) g/dL Lipase 54 (23-300) U/L Coronavirus (PCR) (Not Detectd) 02/17/21 02/17/21 02/17/21 Range/Units 18:03 18:03 18:03 WBC (3.8-10.6) k/uL RBC (3.80-5.40) m/uL Hgb (11.4-16.0) gm/dL Hct (34.0-46.0) % MCV (80.0-100.0) fL MCH (25.0-35.0) pg MCHC (31.0-37.0) g/dL RDW (11.5-15.5) % Plt Count (150-450) k/uL MPV Neutrophils % % Lymphocytes % % Monocytes % % Eosinophils % % Basophils % % Neutrophils # (1.3-7.7) k/uL Lymphocytes # (1.0-4.8) k/uL Monocytes # (0-1.0) k/uL Eosinophils # (0-0.7) k/uL Basophils # (0-0.2) k/uL PT (9.0-12.0) sec INR (<1.2) APTT (22.0-30.0) sec Sodium (137-145) mmol/L Potassium (3.5-5.1) mmol/L Chloride (98-107) mmol/L Carbon Dioxide (22-30) mmol/L Anion Gap mmol/L BUN (7-17) mg/dL Creatinine (0.52-1.04) mg/dL Est GFR (CKD-EPI)AfAm (>60 ml/min/1.73 sqM) Est GFR (CKD-EPI)NonAf (>60 ml/min/1.73 sqM) Glucose (74-99) mg/dL Plasma Lactic Acid Manuel 1.0 (0.7-2.0) mmol/L Calcium (8.4-10.2) mg/dL Magnesium (1.6-2.3) mg/dL Total Bilirubin (0.2-1.3) mg/dL AST (14-36) U/L ALT (4-34) U/L Alkaline Phosphatase (38-126) U/L Troponin I <0.012 (0.000-0.034) ng/mL NT-Pro-B Natriuret Pep 351 pg/mL Total Protein (6.3-8.2) g/dL Albumin (3.5-5.0) g/dL Lipase (23-300) U/L Coronavirus (PCR) (Not Detectd) 02/17/21 Range/Units 23:15 WBC (3.8-10.6) k/uL RBC (3.80-5.40) m/uL Hgb (11.4-16.0) gm/dL Hct (34.0-46.0) % MCV (80.0-100.0) fL MCH (25.0-35.0) pg MCHC (31.0-37.0) g/dL RDW (11.5-15.5) % Plt Count (150-450) k/uL MPV Neutrophils % % Lymphocytes % % Monocytes % % Eosinophils % % Basophils % % Neutrophils # (1.3-7.7) k/uL Lymphocytes # (1.0-4.8) k/uL Monocytes # (0-1.0) k/uL Eosinophils # (0-0.7) k/uL Basophils # (0-0.2) k/uL PT (9.0-12.0) sec INR (<1.2) APTT (22.0-30.0) sec Sodium (137-145) mmol/L Potassium (3.5-5.1) mmol/L Chloride (98-107) mmol/L Carbon Dioxide (22-30) mmol/L Anion Gap mmol/L BUN (7-17) mg/dL Creatinine (0.52-1.04) mg/dL Est GFR (CKD-EPI)AfAm (>60 ml/min/1.73 sqM) Est GFR (CKD-EPI)NonAf (>60 ml/min/1.73 sqM) Glucose (74-99) mg/dL Plasma Lactic Acid Manuel (0.7-2.0) mmol/L Calcium (8.4-10.2) mg/dL Magnesium (1.6-2.3) mg/dL Total Bilirubin (0.2-1.3) mg/dL AST (14-36) U/L ALT (4-34) U/L Alkaline Phosphatase (38-126) U/L Troponin I (0.000-0.034) ng/mL NT-Pro-B Natriuret Pep pg/mL Total Protein (6.3-8.2) g/dL Albumin (3.5-5.0) g/dL Lipase (23-300) U/L Coronavirus (PCR) Not Detected (Not Detectd) Disposition <Xavi Posada - Last Filed: 02/17/21 17:47> <Helio Blue - Last Filed: 02/17/21 21:18> Is patient prescribed a controlled substance at d/c from ED?: No <Jono Trammell - Last Filed: 02/17/21 23:58> Clinical Impression: Bilateral leg edema, Bronchiolitis, Chest pain, Ascites, Abdominal pain Disposition: ADMITTED IP TO THIS [facility] Condition: Good Referrals: Jay Hazel DO [Primary Care Provider] - 1-2 days
[2021-02-17 18:13] LABS: Basophils # (A) 0.1 k/uL (0-0.2); Basophils % (A) 1 %; Eosinophils # (A) 0.3 k/uL (0-0.7); Eosinophils % (A) 2 %; HCT 37.9 % (34.0-46.0); HGB 12.1 gm/dL (11.4-16.0); Lymphocytes # (A) 1.7 k/uL (1.0-4.8); Lymphocytes % (A) 14 %; MCV 87.7 fL (80.0-100.0); Mean Platelet Volume 6.8; Monocytes # (A) 0.8 k/uL (0-1.0); Monocytes % (A) 7 %; Neutrophils % (A) 75 %; Platelet Count 448 k/uL (150-450); RBC 4.32 m/uL (3.80-5.40)
[2021-02-17 18:23] LABS: Albumin 3.4 g/dL (3.5-5.0); Calcium 8.8 mg/dL (8.4-10.2); Magnesium 2.2 mg/dL (1.6-2.3); Partial Thromboplastin Time 24.5 sec (22.0-30.0); Potassium 4.4 mmol/L (3.5-5.1); Prothrombin Time 10.5 sec (9.0-12.0); Total Bilirubin 0.5 mg/dL (0.2-1.3); Total Protein 6.8 g/dL (6.3-8.2)
--- NOTE | 2021-02-17 20:11 | XR ---
EXAMINATION TYPE: XR chest 2V DATE OF EXAM: 02/17/2021 COMPARISON: None HISTORY: 65 year-old female shortness of breath, difficulty breathing TECHNIQUE: AP and lateral views FINDINGS: Heart mildly enlarged. Low lung volumes with crowded vascular markings. Interstitial density is prese nt. Possible patchy right basilar opacity. Eventration anterior right hemidiaphragm. IMPRESSION: 1. Mild cardiomegaly. 2. Very limited assessment due to marked hypoventilatory changes. Possible patchy right basilar atele ctasis versus infiltrate/pneumonia.
--- NOTE | 2021-02-17 22:36 | CT ---
EXAMINATION TYPE: CT abdomen pelvis w con DATE OF EXAM: 02/17/2021 COMPARISON: None HISTORY: LLQ pain CT DLP: 2276.9 mGycm Automated exposure control for dose reduction was used. CONTRAST: Performed with IV Contrast, patient injected with 100 mL of Isovue 300. Images obtained from the diaphragm to the floor the pelvis with IV contrast. There is small right pleural effusion. Heart is slightly enlarged. There is no pericardial effusion. There is large amount of abdominal ascites fluid throughout the abdomen. Liver is intact. The bile du cts are nondilated. Spleen is intact. The stomach is intact. There is no evidence of pancreatic mass. There is no adrenal mass. Kidneys show satisfactory contrast opacification. There is no hydronephrosi s. Ureters are not dilated. There is no retroperitoneal adenopathy. Bladder distends smoothly. There is no inguinal hernia. There is no sign of a pelvic mass. Appendix not definitely seen. No sign of thickened appendix. There is no evidence of free air. There is no sign of a bowel obstruction. Delayed images show normal renal excretion. Lumbar vertebra show a minimal degenerative L4-5 subluxation of 3 mm. Facet joints are intact. The ramin ny pelvis is intact. Hip joints are intact. IMPRESSION: There is moderately large amount of abdominal ascites fluid. No bowel obstruction. No free air. Small right pleural effusion with basilar mild pulmonary atelectasis.
[2021-02-17] MEDS ORDERED: ONDANSETRON 4 MG/2 ML VIAL IVP PRN (23:52)
[2021-02-17] MEDS ORDERED: MORPHINE SULFATE 4 MG/ML SYRINGE IV PRN (23:52)
[2021-02-17] MEDS ORDERED: FUROSEMIDE 10 MG/ML 10 ML VIAL IV STA (23:52)
[2021-02-17] MEDS ORDERED: NALOXONE 0.4 MG/ML 1 ML VIAL IV PRN (23:52)
[2021-02-18 03:53] LABS: Basophils # (A) 0.1 k/uL (0-0.2); Basophils % (A) 1 %; Eosinophils # (A) 0.2 k/uL (0-0.7); Eosinophils % (A) 2 %; HCT 37.1 % (34.0-46.0); HGB 11.8 gm/dL (11.4-16.0); Lymphocytes # (A) 1.6 k/uL (1.0-4.8); Lymphocytes % (A) 13 %; MCH 28.1 pg (25.0-35.0); MCHC 31.7 g/dL (31.0-37.0); MCV 88.7 fL (80.0-100.0); Mean Platelet Volume 6.6; Monocytes # (A) 0.7 k/uL (0-1.0); Monocytes % (A) 6 %; Neutrophils # (A) 9.1 k/uL (1.3-7.7); Neutrophils % (A) 77 %; Platelet Count 471 k/uL (150-450); RBC 4.19 m/uL (3.80-5.40); RDW 13.1 % (11.5-15.5); WBC 11.8 k/uL (3.8-10.6)
[2021-02-18 04:11] LABS: ALT 13 U/L (4-34); AST 23 U/L (14-36); African American GFR (CKD) >90 (>60 ml/min/1.73 sqM); Albumin 3.7 g/dL (3.5-5.0); Alkaline Phosphatase 98 U/L (38-126); Anion Gap 11 mmol/L; Blood Urea Nitrogen 12 mg/dL (7-17); Calcium 9.1 mg/dL (8.4-10.2); Carbon Dioxide 26 mmol/L (22-30); Chloride 100 mmol/L (98-107); Glucose 117 mg/dL (74-99); Non-African American GFR(CKD) 87 (>60 ml/min/1.73 sqM); Potassium 3.7 mmol/L (3.5-5.1); Sodium 137 mmol/L (137-145); Total Bilirubin 0.7 mg/dL (0.2-1.3); Total Protein 7.2 g/dL (6.3-8.2)
[2021-02-18] MEDS: FUROSEMIDE 10 MG/ML 4 ML VIAL IV SCH ×2 (07:41→19:58)
[2021-02-18] MEDS ORDERED: IPRATROPIUM-ALBUTEROL 3 ML NEB INHALATION PRN (09:38)
[2021-02-18] MEDS: IPRATROPIUM-ALBUTEROL 3 ML NEB INHALATION SCH ×2 (11:04→19:19)
--- NOTE | 2021-02-18 12:31 | US ---
EXAMINATION TYPE: US abdomen limited DATE OF EXAM: 02/18/2021 COMPARISON: NONE CLINICAL HISTORY: see IR consult for ordering information. Exam done portable Ascites seen within all 4 quadrants IMPRESSION: Ascites as described
--- NOTE | 2021-02-18 14:20 | P.HPIM ---
History of Present Illness H&P Date: 02/18/21 HISTORY OF PRESENT ILLNESS Is a 65-year-old female patient of Dr. Hazel with past medical history of hypertension, generalized osteoarthritis, overactive bladder, previous hysterectomy. Patient complains of leg swelling with increased weight of 14 pounds over the last couple weeks. She is complaining of shortness of breath and left-sided abdominal pain. She is complaining of feeling weaker and complains of abdominal distention. No fever, chills, night sweats. She denies any history of heart failure. Patient had hysterectomy done in 1985 and ovaries are intact. She denies any history of breast cancer and no history of hormonal therapy. Patient came into the [facility] emergency center for evaluation. She was afebrile, heart rate 92, blood pressure 136/85, pulse ox 95% on room air. WBC 12, hemoglobin 12.1, platelet count 448. INR 1. Electrolytes and renal function normal. Blood sugar 113. Liver function tests were normal. Magnesium 2.2. Troponin negative on 3 draws. Coronavirus PCR not detected. Chest x-ray reveals mild cardiomegaly. Very limited assessment due to marked hypoventilatory changes. Possible patchy right basilar atelectasis versus i nfiltrate or pneumonia. CAT scan of the abdomen and pelvis with contrast revealed moderately large a mount of abdominal ascites fluid. No bowel obstruction. No free air. Small right pleural effusion with basilar mild pulmonary atelectasis. Patient was started on IV Lasix, DuoNeb treatments and admitted to the [facility] floor, consult with interventional radiology for paracentesis diagnostic with c ytology. Echocardiogram, CEA 125, CA 199 and CEA ordered. Patient updated regarding concern of underlying malignancy and understands plan of treatment. REVIEW OF SYSTEMS Constitutional: No fever, no chills, no night sweats. Reports increased weight change. No weakness, fatigue or lethargy. No daytime sleepiness. EENT: No headache. No blurred vision or double vision, no loss of vision. No loss of Hearing, no ringing in the ears, no dizziness. No nasal drainage or congestion. No epistaxis. No sore throat. Lungs: Reports shortness of breath, reports cough, no sputum production. No wheezing. Reports shortness of breath with activity. Cardiovascular: No chest pain, reports lower extremity edema. No palpitations. No paroxysmal nocturnal dyspnea. No orthopnea. No lightheadedness or dizziness. No syncopal episodes. Abdominal: Abdominal distention. Reported left-sided abdominal pain. No nausea, vomiting. No diarrhea. No constipation. No bloody or tarry stools.. No loss of appetite. Genitourinary: No dysuria, increased frequency, urgency. No urinary retention. Musculoskeletal: No myalgias. No muscle weakness, no gait dysfunction, no frequent falls. No back pain. No neck pain. Integumentary: No wounds, no lesions. No rash or pruritus. No unusual bruising. No change in hair or nails. Neurologic: No aphasia. No facial droop. No change in mentation. No head injury. No headache. No paralysis. No paresthesia. Psychiatric: No depression. No anxiety. No mood swings. Endocrine: No abnormal blood sugars. Reports weight gain. No excessive sweating or thirst. No cold intolerance. SOCIAL HISTORY Patient is a lifelong nonsmoker, no alcohol use, no marijuana or illicit drug use. FAMILY HISTORY Mother at age 82 from some type of cancer, unknown site. Father at age 82 with history of prostate cancer. Patient has 1 brother that from kidney cancer and one sister that at age 57 from ovarian cancer. She denies having any history of breast cancer in the family. She is a total of 5 sisters.. PHYSICAL EXAMINATION Gen: This is a morbidly obese 65-year-old female. Patient is resting in bed appears to be comfortable and in no acute distress HEENT: Head is atraumatic, normocephalic. Pupils equal, round. Sclerae is anict geraldine. NECK: Supple. Elevated JVD. No lymphadenopathy. No thyromegaly. LUNGS: Clear to auscultation. No wheezes or rhonchi. No intercostal retractions. HEART: Regular rate and rhythm. No murmur. ABDOMEN: Abdomen distended. Soft. Bowel sounds are present. No masses. No abdominal tenderness. EXTREMITIES: 2+ bilateral pedal edema. No calf tenderness. Dorsalis pedis palpable bilaterally. NEUROLOGICAL: Patient is awake, alert and oriented x3. Cranial nerves 2 through 12 are grossly intact. ASSESSMENT AND PLAN 1. Shortness of breath, weakness, edema with mild abdominal pain and ascites, rule out abdominal malignancy. Patient has history of hysterectomy done due to "enlargement" in 1985. Paracentesis with interventional radiology for diagnostic testing including cytology. 2. Ascites of unclear etiology. Paracentesis with interventional radiology, Lasix 40 mg every 12 hours. 3. Atelectasis. Incentive spirometry. 4. Hypertension. Continue Coreg 25 mg at bedtime. 5. GI prophylaxis. Protonix. 6. DVT prophylaxis. Heparin subcu. 7. COVID-19 testing negative. Patient has been hospitalized during a pandemic. Patient will be admitted to the hospital for a minimum of 2 night stay. DISCHARGE PLAN Home. Impression and plan of care have been directed as dictated by the signing physician. Sophia Oliver nurse practitioner acting as scribe for signing physician. Past Medical History Past Medical History: Hypertension, Osteoarthritis (OA) Additional Past Medical History / Comment(s): "overactive bladder"-urinary leakage History of Any Multi-Drug Resistant Organisms: None Reported Past Surgical History: Breast Surgery, Hysterectomy Additional Past Surgical History / Comment(s): rt breast lumpectomy(fibroids), left eye intac implant Past Anesthesia/Blood Transfusion Reactions: Previous Problems w/ Anesthesia, Postoperative Nausea & Vomiting (PONV) Additional Past Anesthesia/Blood Transfusion Reaction / Comment(s): "took a long time to come out" Past Psychological History: No Psychological Hx Reported Smoking Status: Never smoker Past Alcohol Use History: None Reported Past Drug Use History: None Reported - Past Family History Mother Family Medical History: Cancer Father Family Medical History: Cancer Sister(s) Family Medical History: Cancer Brother(s) Family Medical History: Cancer Medications and Allergies Home Medications Medication Instructions Recorded Confirmed Type Carvedilol [Coreg] 25 mg PO HS 12/04/19 02/17/21 History Allergies Allergy/AdvReac Type Severity Reaction Status Date / Time No Known Allergies Allergy Verified 02/17/21 19:07 Physical Exam Vitals: Vital Signs Temp Pulse Pulse Resp BP BP Pulse Ox 02/18/21 08:00 18 02/18/21 07:00 98.9 F 94 18 127/82 93 L 02/17/21 23:18 87 18 133/87 94 L 02/17/21 17:46 97.6 F 92 16 136/85 95 Intake and Output 02/17/21 02/18/21 02/18/21 22:59 06:59 14:59 Other: # Voids 4 Weight 135.624 kg 135.624 kg Results CBC & Chem 7: 02/18/21 03:42 02/18/21 03:42 Labs: Abnormal Lab Results - Last 24 Hours (Table) 02/17/21 02/17/21 02/18/21 Range/Units 18:03 18:03 03:42 WBC 12.0 H 11.8 H (3.8-10.6) k/uL Plt Count 471 H (150-450) k/uL Neutrophils # 9.0 H 9.1 H (1.3-7.7) k/uL Glucose 113 H (74-99) mg/dL Albumin 3.4 L (3.5-5.0) g/dL 02/18/21 Range/Units 03:42 WBC (3.8-10.6) k/uL Plt Count (150-450) k/uL Neutrophils # (1.3-7.7) k/uL Glucose 117 H (74-99) mg/dL Albumin (3.5-5.0) g/dL
[2021-02-18 16:53] LABS: Appearance,BF Hazy; Nucleated Cells, Body Fluid 1500 /uL; RBC, Body Fluid 1150 /uL
--- NOTE | 2021-02-18 17:01 | ECHOF ---
Referral Reason:CHF MEASUREMENTS -------- HEIGHT: 170.2 cm WEIGHT: 135.6 kg BP: RVIDd: 3.6 cm (< 3.3) IVSd: 1.3 cm (0.6 - 1.1) LVIDd: 4.6 cm (3.9 - 5.3) LVPWd: 1.5 cm (0.6 - 1.1) IVSs: 1.5 cm LVIDs: 3.3 cm LVPWs: 1.7 cm LAESV Index (A-L): 17.33 ml/m Ao Diam: 3.0 cm (2.0 - 3.7) AV Cusp: 1.9 cm (1.5 - 2.6) LA Diam: 3.8 cm (2.7 - 3.8) MV EXCURSION: 19.436 mm (> 18.000) MV EF SLOPE: 67 mm/s (70 - 150) MV E Sam: 0.38 m/s MV DecT: 222 ms MV A Sam: 0.69 m/s MV E/A Ratio: 0.54 RAP: 5.00 mmHg RVSP: 12.14 mmHg FINDINGS -------- Sinus rhythm. Morbid Obesity The left ventricular size is normal. There is mild concentric left ventricular hypertrophy. Overa ll left ventricular systolic function is normal with, an EF between 55 - 60 %. The right ventricle is normal in size. Normal LA size by volume 22+/-6 ml/m2. The right atrial size is normal. The aortic valve is trileaflet, and appears structurally normal. No aortic stenosis or regurgitation. Mild mitral regurgitation is present. Mild tricuspid regurgitation present. Right ventricular systolic pressure is normal at < 35 mmHg. There is no pulmonic regurgitation present. Echo free space represents a pericardial fat pad. CONCLUSIONS -------- 1. The left ventricular size is normal. 2. There is mild concentric left ventricular hypertrophy. 3. Overall left ventricular systolic function is normal with, an EF between 55 - 60 %. 4. The right ventricle is normal in size. 5. Normal LA size by volume 22+/-6 ml/m2. 6. The right atrial size is normal. 7. The aortic valve is trileaflet, and appears structurally normal. No aortic stenosis or regurgitati on. 8. Mild mitral regurgitation is present. 9. Mild tricuspid regurgitation present. 10. Echo free space represents a pericardial fat pad. ANIMAL HUSBANDMAN: Virginia Chery RDCS
[2021-02-18] MEDS: ALBUMIN HUMAN 25% 50 ML in EMPTY BAG 1 BAG IVPB SCH ×3 (17:28→18:12)
[2021-02-18] MEDS: HEPARIN SODIUM,PORCINE/PF 5,000 UNIT/0.5 ML SYRINGE SQ SCH ×2 (17:28→23:41)
[2021-02-18 18:03] LABS: Mononuclear WBC,Body Fluid 92 %; Polynuclear WBC,Body Fluid 7 %; Total Cells Counted,Body Fluid 100
[2021-02-18] MEDS: carvediloL 12.5 MG TAB PO SCH (19:58)
[2021-02-19 05:31] LABS: Amylase, Fluid Source Paracentesis Fluid; Glucose, BF Source Paracentesis Fluid; Glucose, Body Fluid 77 mg/dL; LDH, Body Fluid Source Paracentesis Fluid; Total Protein, Body Fluid 5670 mg/dL
--- NOTE | 2021-02-19 06:59 | US ---
Ultrasound-guided paracentesis. DATE OF EXAM: 02/18/2021 CLINICAL HISTORY: Ascites The procedure was discussed with the patient. The risks, complications, benefits, and alternatives we re discussed and any questions were answered. Informed consent was obtained. The patient was placed s upine on the ultrasound table and prepped and draped in the usual sterile fashion. All elements of maximal barrier technique were utilized. Under ultrasound guidance, access into the right lower quadrant was obtained, via the paracentesis catheter system and direct ultrasound guidanc e. Approximately 6.4 liters of straw-colored fluid was removed. The patient was stable throughout the pr ocedure and remained stable upon discharge from Department of Radiology. IMPRESSION: Successful paracentesis under ultrasound guidance.
[2021-02-19] MEDS: PANTOPRAZOLE 40 MG TABLET PO SCH (07:50)
[2021-02-19] MEDS: HEPARIN SODIUM,PORCINE/PF 5,000 UNIT/0.5 ML SYRINGE SQ SCH ×2 (07:50→15:57)
[2021-02-19] MEDS: IPRATROPIUM-ALBUTEROL 3 ML NEB INHALATION SCH ×3 (08:07→19:32)
[2021-02-19] MEDS: FUROSEMIDE 10 MG/ML 4 ML VIAL IV SCH ×2 (09:08→20:47)
[2021-02-19] MEDS ORDERED: COLLAGENASE 250 UNIT/GM OINTMENT 30 GM TUBE TOPICAL SCH (11:15)
--- NOTE | 2021-02-19 13:08 | P.PN ---
<Sophia Oliver A - Last Filed: 02/19/21 13:05> Subjective Progress Note Date: 02/19/21 HISTORY OF PRESENT ILLNESS Is a 65-year-old female patient of Dr. Hazel with past medical history of hypertension, generalized osteoarthritis, overactive bladder, previous hysterectomy. Patient complains of leg swelling with increased weight of 14 pounds over the last couple weeks. She is complaining of shortness of breath and left-sided abdominal pain. She is complaining of feeling weaker and comp lains of abdominal distention. No fever, chills, night sweats. She denies any history of heart failure. Patient had hysterectomy done in 1985 and ovaries are intact. She denies any history of breast cancer and no history of hormonal therapy. Patient came into the [facility] emergency center for evaluation. She was afebrile, heart rate 92, blood pressure 136/85, pulse ox 95% on room air. WBC 12, hemoglobin 12.1, platelet count 448. INR 1. Electrolytes and renal function normal. Blood sugar 113. Liver function tests were normal. Magnesium 2.2. Troponin negative on 3 draws. Coronavirus PCR not detected. Chest x-ray reveals mild cardiomegaly. Very limited assessment due to marked hypoventilatory changes. Possible patchy right basilar atelectasis versus infiltrate or pneumonia. CAT scan of the abdomen and pelvis with contrast revealed moderately large amount of abdominal ascites fluid. No bowel obstruction. No free air. Small right pleural effusion with basilar mild pulmonary atelectasis. Patient was started on IV Lasix, DuoNeb treatments and [facility], consult with interventional radiology for paracentesis diagnostic with cytology. Echocardiogram, CEA 125, CA 199 and CEA ordered. Patient updated regarding concern of underlying malignancy and understands plan of treatment. 02/19: Patient underwent paracentesis with removal of 6.4 L of straw-colored fluid, IV albumin ordered. Cultures are pending. Cytology is pending. Patient has been afebrile, heart rate 83, blood pressure 138/79, pulse ox 96% on room air. Cancer markers are pending. Patient is continued on IV Lasix and patient's weight is down 12 kg. Patient states that her belly feels much better. She denies nausea. She has less lower extremity edema as well. She does have a noted left forearm ulceration that was present on admission, nonhealing wound. Ayaz will be added. Consult in place oncology. Echocardiogram reveals EF of 55-60% with mild concentric left ventricular hypertrophy, mild mitral regurgitation, mild tricuspid regurgitation. REVIEW OF SYSTEMS Constitutional: No fever, no chills, no night sweats. Reports increased weight change. No weakness, fatigue or lethargy. No daytime sleepiness. EENT: No headache. No blurred vision or double vision, no loss of vision. No loss of Hearing, no ringing in the ears, no dizziness. No nasal drainage or congestion. No epistaxis. No sore throat. Lungs: Reports shortness of breath, reports cough, no sputum production. No wheezing. Reports shortness of breath with activity. Cardiovascular: No chest pain, reports lower extremity edema. No palpitations. No paroxysmal nocturnal dyspnea. No orthopnea. No lightheadedness or dizziness. No syncopal episodes. Abdominal: Abdominal distention, improved. Denies abdominal pain. No nausea, vomiting. No diarrhea. No constipation. No bloody or tarry stools.. No loss of appetite. Genitourinary: No dysuria, increased frequency, urgency. No urinary retention. Musculoskeletal: No myalgias. No muscle weakness, no gait dysfunction, no frequent falls. No back pain. No neck pain. Integumentary: Wound left forearm. No rash or pruritus. No unusual bruising. No change in hair or nails. Neurologic: No aphasia. No facial droop. No change in mentation. No head injury. No headache. No paralysis. No paresthesia. Psychiatric: No depression. No anxiety. No mood swings. Endocrine: No abnormal blood sugars. Reports weight gain. No excessive sweating or thirst. No cold intolerance. PHYSICAL EXAMINATION Gen: This is a morbidly obese 65-year-old female. Patient is resting in chair appears to be comfortable and in no acute distress HEENT: Head is atraumatic, normocephalic. Pupils equal, round. Sclerae is anicteric. NECK: Supple. Elevated JVD. No lymphadenopathy. No thyromegaly. LUNGS: Clear to auscultation. No wheezes or rhonchi. No intercostal retract ions. HEART: Regular rate and rhythm. No murmur. ABDOMEN: Soft. Bowel sounds are present. No masses. No abdominal tenderness. EXTREMITIES: 2+ bilateral pedal edema. No calf tenderness. Dorsalis pedis palpable bilaterally. SKIN: Ulceration to the left forearm, no erythema, edema, followed her. Please see nursing recommendation for measurements. NEUROLOGICAL: Patient is awake, alert and oriented x3. Cranial nerves 2 through 12 are grossly intact. ASSESSMENT AND PLAN 1. Shortness of breath, weakness, edema with mild abdominal pain and ascites, rule out abdominal malignancy. Patient has history of hysterectomy done due to "enlargement" in 1985. Paracentesis with interventional radiology for diagnostic testing including cytology. 2. Ascites of unclear etiology. Paracentesis completed 02/18 with interventional radiology, continue Lasix 40 mg every 12 hours. Cytology pending. Cancer markers pending 3. Atelectasis. Incentive spirometry. 4. Hypertension. Continue Coreg 25 mg at bedtime. 5. GI prophylaxis. Protonix. 6. DVT prophylaxis. Heparin subcu. 7. Left forearm ulceration. Medihoney daily. 8. COVID-19 testing negative. Patient has been hospitalized during a pandemic. DISCHARGE PLAN Home on the weekend. Impression and plan of care have been directed as dictated by the signing physician. Sophia Oliver nurse practitioner acting as scribe for signing physician. Objective - Vital Signs Vital signs: Vital Signs Temp 98.6 F 02/19/21 08:34 Pulse 83 02/19/21 08:34 Resp 20 02/19/21 08:34 BP 138/79 02/19/21 08:34 Pulse Ox 96 02/19/21 08:34 Intake & Output 02/18/21 02/19/21 02/19/21 18:59 06:59 18:59 Intake Total 480 Output Total 1650 550 Balance 480 -1650 -550 Weight 123.649 kg Intake: Oral 480 Output: Urine 1650 550 Other: # Voids 6 2 1 - Labs CBC & Chem 7: 02/18/21 03:42 02/18/21 03:42 Labs: Microbiology - Last 24 Hours (Table) 02/18/21 15:00 Gram Stain - Preliminary Paracentesis Fluid Body Fluid Culture - Preliminary 02/18/21 15:00 Anaerobic Culture - Preliminary Paracentesis Fluid <Arias Almaguer - Last Filed: 02/19/21 13:16> Subjective With patient's family history of ovarian cancer and history of hysterectomy for possible endometriosis, patient is at high risk of ovarian cancer. Cytology pending. He will await oncology evaluation. Objective - Vital Signs Vital signs: Vital Signs Temp 98.6 F 02/19/21 08:34 Pulse 88 02/19/21 12:12 Resp 20 02/19/21 08:34 BP 138/79 02/19/21 08:34 Pulse Ox 96 02/19/21 08:34 Intake & Output 02/18/21 02/19/21 02/19/21 18:59 06:59 18:59 Intake Total 480 Output Total 1650 1000 Balance 480 -1650 -1000 Weight 123.649 kg Intake: Oral 480 Output: Urine 1650 1000 Other: # Voids 6 2 1 - Labs CBC & Chem 7: 02/18/21 03:42 02/18/21 03:42 Labs: Microbiology - Last 24 Hours (Table) 02/18/21 15:00 Gram Stain - Preliminary Paracentesis Fluid Body Fluid Culture - Preliminary 02/18/21 15:00 Anaerobic Culture - Preliminary Paracentesis Fluid
[2021-02-19] MEDS: carvediloL 12.5 MG TAB PO SCH (20:47)
--- NOTE | 2021-02-19 21:14 | P.CONS ---
History of Present Illness - Reason for Consult Consult date: 02/19/21 Abdominal Ascites Requesting physician: Sophia Oliver - History of Present Illness Mrs. Dc is a 65 year old female patient who was found to have large volume abdominal ascites. Abdomen and Pelvis CT concern for malignancy therefore we have been asked to evaluate. She underwent paracentesis today, Awaiting Cytology. Review of Systems All systems: negative Constitutional: Reports as per HPI Past Medical History Past Medical History: Hypertension, Osteoarthritis (OA) Additional Past Medical History / Comment(s): "overactive bladder"-urinary leakage History of Any Multi-Drug Resistant Organisms: None Reported Past Surgical History: Breast Surgery, Hysterectomy Additional Past Surgical History / Comment(s): rt breast lumpectomy(fibroids), left eye intac implant Past Anesthesia/Blood Transfusion Reactions: Previous Problems w/ Anesthesia, Postoperative Nausea & Vomiting (PONV) Additional Past Anesthesia/Blood Transfusion Reaction / Comm: "took a long time to come out" Past Psychological History: No Psychological Hx Reported Smoking Status: Never smoker Past Alcohol Use History: None Reported Past Drug Use History: None Reported - Past Family History Mother Family Medical History: Cancer Father Family Medical History: Cancer Sister(s) Family Medical History: Cancer Brother(s) Family Medical History: Cancer Medications and Allergies Home Medications Medication Instructions Recorded Confirmed Type Carvedilol [Coreg] 25 mg PO HS 12/04/19 02/17/21 History Allergies Allergy/AdvReac Type Severity Reaction Status Date / Time No Known Allergies Allergy Verified 02/17/21 19:07 Physical Exam Vitals: Vital Signs Temp Pulse Pulse Resp BP Pulse Ox 02/19/21 14:09 98.4 F 82 16 122/77 94 L 02/19/21 12:12 88 02/19/21 12:02 88 02/19/21 08:34 98.6 F 83 18 138/79 96 02/19/21 08:16 76 02/19/21 08:07 72 02/19/21 00:18 98.7 F 79 18 101/62 93 L 02/18/21 20:20 112 H 20 02/18/21 20:00 98.7 F 112 H 20 112/62 94 L 02/18/21 19:38 95 02/18/21 19:26 95 02/18/21 17:20 98.6 F 98 18 116/70 95 02/18/21 15:47 92 18 133/69 94 L 02/18/21 15:35 90 18 132/68 96 Intake and Output 02/19/21 02/19/21 02/19/21 06:59 14:59 22:59 Output Total 400 1000 Balance -400 -1000 Output: Urine 400 1000 Other: # Voids 2 1 Alert NAD Neck: Supple Lungs: DIminished Lower Lobes HR: Tachy Abdomen: Firm, Distended Ext: Edema Results CBC & Chem 7: 02/18/21 03:42 02/18/21 03:42 Labs: Microbiology - Last 24 Hours (Table) 02/18/21 15:00 Gram Stain - Preliminary Paracentesis Fluid Body Fluid Culture - Preliminary 02/18/21 15:00 Anaerobic Culture - Preliminary Paracentesis Fluid CT scan - abdomen: report reviewed CT scan - pelvis: report reviewed Assessment and Plan (1) Abdominal pain Current Visit: Yes Status: Acute Code(s): R10.9 - UNSPECIFIED ABDOMINAL PAIN SNOMED Code(s): 64307620 (2) Ascites Current Visit: Yes Status: Acute Code(s): R18.8 - OTHER ASCITES SNOMED Code(s): 282244615 (3) Bilateral leg edema Current Visit: Yes Status: Acute Code(s): R60.0 - LOCALIZED EDEMA SNOMED Code(s): 578620559 Plan: Await Cytology and Ca125 Further recs to follow once this has resulted Add Albumin to para fluid Physician Attest: I have completed the full history and physical and agree with above dictation, dictated as a scribe.
[2021-02-20] MEDS: HEPARIN SODIUM,PORCINE/PF 5,000 UNIT/0.5 ML SYRINGE SQ SCH ×3 (00:14→16:21)
[2021-02-20] MEDS: PANTOPRAZOLE 40 MG TABLET PO SCH (06:23)
[2021-02-20 07:03] LABS: HGB 10.8 gm/dL (11.4-16.0); MCH 28.5 pg (25.0-35.0); MCHC 32.8 g/dL (31.0-37.0); MCV 86.9 fL (80.0-100.0); Mean Platelet Volume 6.9; Platelet Count 366 k/uL (150-450); RDW 12.9 % (11.5-15.5)
[2021-02-20 07:26] LABS: ALT 10 U/L (4-34); AST 18 U/L (14-36); African American GFR (CKD) >90 (>60 ml/min/1.73 sqM); Albumin 2.9 g/dL (3.5-5.0); Alkaline Phosphatase 73 U/L (38-126); Anion Gap 5 mmol/L; Blood Urea Nitrogen 10 mg/dL (7-17); Calcium 8.5 mg/dL (8.4-10.2); Carbon Dioxide 33 mmol/L (22-30); Chloride 99 mmol/L (98-107); Glucose 106 mg/dL (74-99); Non-African American GFR(CKD) >90 (>60 ml/min/1.73 sqM); Potassium 3.3 mmol/L (3.5-5.1); Sodium 137 mmol/L (137-145); Total Bilirubin 0.4 mg/dL (0.2-1.3); Total Protein 5.7 g/dL (6.3-8.2)
[2021-02-20] MEDS: IPRATROPIUM-ALBUTEROL 3 ML NEB INHALATION SCH ×3 (07:28→18:56)
[2021-02-20 08:37] LABS: Albumin, Fluid Source Thoracentesis Fluid
[2021-02-20] MEDS: FUROSEMIDE 10 MG/ML 4 ML VIAL IV SCH ×2 (08:44→20:30)
[2021-02-20] MEDS ORDERED: Potassium Replacement Protocol 1 EACH MISC MISCELLANE PRN (12:28)
--- NOTE | 2021-02-20 12:32 | P.PN ---
Subjective Progress Note Date: 02/20/21 HISTORY OF PRESENT ILLNESS Is a 65-year-old female patient of Dr. Hazel with past medical history of hypertension, generalized osteoarthritis, overactive bladder, previous hyste rectomy. Patient complains of leg swelling with increased weight of 14 pounds over the last couple weeks. She is complaining of shortness of breath and left- sided abdominal pain. She is complaining of feeling weaker and complains of abdominal distention. No fever, chills, night sweats. She denies any history of heart failure. Patient had hysterectomy done in 1985 and ovaries are intact. She denies any history of breast cancer and no history of hormonal therapy. Patient came into the [facility] emergency center for evaluation. She was afebrile, heart rate 92, blood pressure 136/85, pulse ox 95% on room air. WBC 12, hemoglobin 12.1, platelet count 448. INR 1. Electrolytes and renal function normal. Blood sugar 113. Liver function tests were normal. Magnesium 2.2. Troponin negative on 3 draws. Coronavirus PCR not detected. Chest x-ray reveals mild cardiomegaly. Very limited assessment due to marked hypoventilatory changes. Possible patchy right basilar atelectasis versus infiltrate or pneumonia. CAT scan of the abdomen and pelvis with contrast revealed moderately large amount of abdominal ascites fluid. No bowel obstruction. No free air. Small right pleural effusion with basilar mild pulmonary atelectasis. Patient was started on IV Lasix, DuoNeb treatments and admitted to the [facility] floor, consult with interventional radiology for paracentesis diagnostic with cytology. Echocardiogram, CEA 125, CA 199 and CEA ordered. Patient updated regarding concern of underlying malignancy and understands plan of treatment. 02/19: Patient underwent paracentesis with removal of 6.4 L of straw-colored fluid, IV albumin ordered. Cultures are pending. Cytology is pending. Patient has been afebrile, heart rate 83, blood pressure 138/79, pulse ox 96% on room air. Cancer markers are pending. Patient is continued on IV Lasix and patient's weight is down 12 kg. Patient states that her belly feels much better. She denies nausea. She has less lower extremity edema as well. She does have a noted left forearm ulceration that was present on admission, nonhealing wound. Medihoney will be added. Consult in place oncology. Echocardiogram reveals EF of 55-60% with mild concentric left ventricular hypertrophy, mild mitral regurgitation, mild tricuspid regurgitation. 02/20: Patient is found sitting up in chair in no acute distress. Patient has no complaints at this time. Patient is concerned related to next steps for plan of care. Cytology is pending. CEA 125 549. Patient continues to be on Lasix. Her potassium is 3.3 this morning. We will replace and continue a potassium supplement while Lasix is continuing. Lower extremity edema is improving. Patient states that her belly feels much better. Denies any nausea at this time. Patient is tolerating meta-honey to the ulceration site. REVIEW OF SYSTEMS Constitutional: No fever, no chills, no night sweats. Reports increased weight change. No weakness, fatigue or lethargy. No daytime sleepiness. EENT: No headache. No blurred vision or double vision, no loss of vision. No loss of Hearing, no ringing in the ears, no dizziness. No nasal drainage or congestion. No epistaxis. No sore throat. Lungs: Reports shortness of breath, reports cough, no sputum production. No wheezing. Reports shortness of breath with activity. Cardiovascular: No chest pain, reports lower extremity edema. No palpitations. No paroxysmal nocturnal dyspnea. No orthopnea. No lightheadedness or dizziness. No syncopal episodes. Abdominal: Abdominal distention, improved. Denies abdominal pain. No nausea, vomiting. No diarrhea. No constipation. No bloody or tarry stools.. No loss of appetite. Genitourinary: No dysuria, increased frequency, urgency. No urinary retention. Musculoskeletal: No myalgias. No muscle weakness, no gait dysfunction, no frequent falls. No back pain. No neck pain. Integumentary: Wound left forearm. No rash or pruritus. No unusual bruising. No change in hair or nails. Neurologic: No aphasia. No facial droop. No change in mentation. No head injury. No headache. No paralysis. No paresthesia. Psychiatric: No depression. No anxiety. No mood swings. Endocrine: No abnormal blood sugars. Reports weight gain. No excessive sweating or thirst. No cold intolerance. PHYSICAL EXAMINATION Gen: This is a morbidly obese 65-year-old female. Patient is resting in chair appears to be comfortable and in no acute distress HEENT: Head is atraumatic, normocephalic. Pupils equal, round. Sclerae is anicteric. NECK: Supple. Elevated JVD. No lymphadenopathy. No thyromegaly. LUNGS: Clear to auscultation. No wheezes or rhonchi. No intercostal retractions. HEART: Regular rate and rhythm. No murmur. ABDOMEN: Soft. Bowel sounds are present. No masses. No abdominal tenderness. EXTREMITIES: 2+ bilateral pedal edema. No calf tenderness. Dorsalis pedis palpable bilaterally. SKIN: Ulceration to the left forearm, no erythema, edema, followed her. Please see nursing recommendation for measurements. NEUROLOGICAL: Patient is awake, alert and oriented x3. Cranial nerves 2 through 12 are grossly intact. ASSESSMENT AND PLAN 1. Shortness of breath, weakness, edema with mild abdominal pain and ascites, rule out abdominal malignancy. Patient has history of hysterectomy done due to "enlargement" in 1985. Paracentesis with interventional radiology for diagnos tic testing including cytology. 2. Ascites of unclear etiology. Paracentesis completed 02/18 with interventional radiology, continue Lasix 40 mg every 12 hours. Cytology pending. CEA 125- 549 3. Atelectasis. Incentive spirometry. 4. Hypertension. Continue Coreg 25 mg at bedtime. 5. GI prophylaxis. Protonix. 6. DVT prophylaxis. Heparin subcu. 7. Left forearm ulceration. Medihoney daily. 8. Hypokalemia. K-Dur 20 meq cues daily 9. COVID-19 testing negative. Patient has been hospitalized during a pandemic. DISCHARGE PLAN Home on the weekend. Impression and plan of care have been directed as dictated by the signing physician. Sophia Oliver nurse practitioner acting as scribe for signing physician. Objective - Vital Signs Vital signs: Vital Signs Temp 98.2 F 02/20/21 06:21 Pulse 78 02/20/21 06:21 Resp 16 02/20/21 06:21 BP 117/68 02/20/21 08:27 Pulse Ox 97 02/20/21 06:21 Intake & Output 02/19/21 02/20/21 02/20/21 18:59 06:59 18:59 Intake Total 900 Output Total 1550 1600 950 Balance -1550 -700 -950 Weight 121.5 kg Intake: Oral 900 Output: Urine 1550 1600 950 Other: Voiding Method Toilet # Voids 1 - Labs CBC & Chem 7: 02/20/21 06:37 02/20/21 06:37 Labs: Abnormal Lab Results - Last 24 Hours (Table) 02/18/21 02/20/21 02/20/21 Range/Units 03:42 06:37 06:37 Hgb 10.8 L (11.4-16.0) gm/dL Hct 33.0 L (34.0-46.0) % Potassium 3.3 L (3.5-5.1) mmol/L Carbon Dioxide 33 H (22-30) mmol/L Glucose 106 H (74-99) mg/dL Total Protein 5.7 L (6.3-8.2) g/dL Albumin 2.9 L (3.5-5.0) g/dL CA 125 Antigen 549.0 H (0.0-30.1) U/mL Microbiology - Last 24 Hours (Table) 02/18/21 15:00 Gram Stain - Preliminary Paracentesis Fluid Body Fluid Culture - Preliminary
[2021-02-20] MEDS: POTASSIUM CHLORIDE ER 20 MEQ TAB.ER PO SCH (13:53)
[2021-02-20 14:50] LABS: Carcinoembryonic Antigen <0.6 ng/mL (0.0-4.9)
[2021-02-20] MEDS: carvediloL 12.5 MG TAB PO SCH (20:30)
[2021-02-21] MEDS: HEPARIN SODIUM,PORCINE/PF 5,000 UNIT/0.5 ML SYRINGE SQ SCH ×4 (00:06→23:47)
[2021-02-21] MEDS: PANTOPRAZOLE 40 MG TABLET PO SCH (06:12)
[2021-02-21 06:34] LABS: Basophils % (A) 1 %; Eosinophils # (A) 0.2 k/uL (0-0.7); Eosinophils % (A) 3 %; HCT 36.2 % (34.0-46.0); HGB 11.8 gm/dL (11.4-16.0); Lymphocytes # (A) 1.5 k/uL (1.0-4.8); Lymphocytes % (A) 21 %; MCH 28.4 pg (25.0-35.0); MCHC 32.6 g/dL (31.0-37.0); MCV 87.2 fL (80.0-100.0); Mean Platelet Volume 6.5; Monocytes # (A) 0.5 k/uL (0-1.0); Monocytes % (A) 7 %; Neutrophils # (A) 4.7 k/uL (1.3-7.7); Neutrophils % (A) 67 %; Platelet Count 400 k/uL (150-450); RBC 4.16 m/uL (3.80-5.40); WBC 7.1 k/uL (3.8-10.6)
[2021-02-21 06:45] LABS: African American GFR (CKD) >90 (>60 ml/min/1.73 sqM); Anion Gap 10 mmol/L; Blood Urea Nitrogen 10 mg/dL (7-17); Calcium 8.8 mg/dL (8.4-10.2); Carbon Dioxide 32 mmol/L (22-30); Chloride 97 mmol/L (98-107); Glucose 116 mg/dL (74-99); Non-African American GFR(CKD) >90 (>60 ml/min/1.73 sqM); Potassium 3.5 mmol/L (3.5-5.1); Sodium 139 mmol/L (137-145)
[2021-02-21] MEDS: IPRATROPIUM-ALBUTEROL 3 ML NEB INHALATION SCH ×3 (07:23→19:36)
[2021-02-21] MEDS ORDERED: POTASSIUM CHLORIDE ER 20 MEQ TAB.ER PO STA ×2 (08:12→11:07)
[2021-02-21] MEDS: POTASSIUM CHLORIDE ER 20 MEQ TAB.ER PO SCH (09:23)
[2021-02-21] MEDS: FUROSEMIDE 10 MG/ML 4 ML VIAL IV SCH ×2 (09:24→20:32)
--- NOTE | 2021-02-21 12:06 | P.PN ---
Subjective Progress Note Date: 02/21/21 HISTORY OF PRESENT ILLNESS Is a 65-year-old female patient of Dr. Hazel with past medical history of hypertension, generalized osteoarthritis, overactive bladder, previous hyste rectomy. Patient complains of leg swelling with increased weight of 14 pounds over the last couple weeks. She is complaining of shortness of breath and left- sided abdominal pain. She is complaining of feeling weaker and complains of abdominal distention. No fever, chills, night sweats. She denies any history of heart failure. Patient had hysterectomy done in 1985 and ovaries are intact. She denies any history of breast cancer and no history of hormonal therapy. Patient came into the [facility] emergency center for evaluation. She was afebrile, heart rate 92, blood pressure 136/85, pulse ox 95% on room air. WBC 12, hemoglobin 12.1, platelet count 448. INR 1. Electrolytes and renal function normal. Blood sugar 113. Liver function tests were normal. Magnesium 2.2. Troponin negative on 3 draws. Coronavirus PCR not detected. Chest x-ray reveals mild cardiomegaly. Very limited assessment due to marked hypoventilatory changes. Possible patchy right basilar atelectasis versus infiltrate or pneumonia. CAT scan of the abdomen and pelvis with contrast revealed moderately large amount of abdominal ascites fluid. No bowel obstruction. No free air. Small right pleural effusion with basilar mild pulmonary atelectasis. Patient was started on IV Lasix, DuoNeb treatments and admitted to the [facility] floor, consult with interventional radiology for paracentesis diagnostic with cytology. Echocardiogram, CEA 125, CA 199 and CEA ordered. Patient updated regarding concern of underlying malignancy and understands plan of treatment. 02/19: Patient underwent paracentesis with removal of 6.4 L of straw-colored fluid, IV albumin ordered. Cultures are pending. Cytology is pending. Patient has been afebrile, heart rate 83, blood pressure 138/79, pulse ox 96% on room air. Cancer markers are pending. Patient is continued on IV Lasix and patient's weight is down 12 kg. Patient states that her belly feels much better. She denies nausea. She has less lower extremity edema as well. She does have a noted left forearm ulceration that was present on admission, nonhealing wound. Medihoney will be added. Consult in place oncology. Echocardiogram reveals EF of 55-60% with mild concentric left ventricular hypertrophy, mild mitral regurgitation, mild tricuspid regurgitation. 02/20: Patient is found sitting up in chair in no acute distress. Patient has no complaints at this time. Patient is concerned related to next steps for plan of care. Cytology is pending. CEA 125 549. Patient continues to be on Lasix. Her potassium is 3.3 this morning. We will replace and continue a potassium supplement while Lasix is continuing. Lower extremity edema is improving. Patient states that her belly feels much better. Denies any nausea at this time. Patient is tolerating meta-honey to the ulceration site. 02/21: Patient is found ambulatory in the room in no acute distress. Patient states that the lower extremity edema continues to improve. She did have one episode of hypotension last night. The additional dose of Lasix was held. However her blood pressure was 119/80 this morning and the Lasix was given. Her potassium this morning was 3.5. We will continue with K-Dur 20 meq daily. Still awaiting cytology. We'll discuss with patient plan of care and possible [employer] consult prior to her discharge. REVIEW OF SYSTEMS Constitutional: No fever, no chills, no night sweats. Reports increased weight change. No weakness, fatigue or lethargy. No daytime sleepiness. EENT: No headache. No blurred vision or double vision, no loss of vision. No loss of Hearing, no ringing in the ears, no dizziness. No nasal drainage or congestion. No epistaxis. No sore throat. Lungs: Reports shortness of breath, reports cough, no sputum production. No wheezing. Reports shortness of breath with activity. Cardiovascular: No chest pain, reports lower extremity edema. No palpitations. No paroxysmal nocturnal dyspnea. No orthopnea. No lightheadedness or dizziness. No syncopal episodes. Abdominal: Abdominal distention, improved. Denies abdominal pain. No nausea, vomiting. No diarrhea. No constipation. No bloody or tarry stools.. No loss of appetite. Genitourinary: No dysuria, increased frequency, urgency. No urinary retention. Musculoskeletal: No myalgias. No muscle weakness, no gait dysfunction, no sudarshan quent falls. No back pain. No neck pain. Integumentary: Wound left forearm. No rash or pruritus. No unusual bruising. No change in hair or nails. Neurologic: No aphasia. No facial droop. No change in mentation. No head injury. No headache. No paralysis. No paresthesia. Psychiatric: No depression. No anxiety. No mood swings. Endocrine: No abnormal blood sugars. Reports weight gain. No excessive sweating or thirst. No cold intolerance. PHYSICAL EXAMINATION Gen: This is a morbidly obese 65-year-old female. Patient is resting in chair appears to be comfortable and in no acute distress HEENT: Head is atraumatic, normocephalic. Pupils equal, round. Sclerae is anicteric. NECK: Supple. Elevated JVD. No lymphadenopathy. No thyromegaly. LUNGS: Clear to auscultation. No wheezes or rhonchi. No intercostal retractions. HEART: Regular rate and rhythm. No murmur. ABDOMEN: Soft. Bowel sounds are present. No masses. No abdominal tenderness. EXTREMITIES: 2+ bilateral pedal edema. No calf tenderness. Dorsalis pedis palpable bilaterally. SKIN: Ulceration to the left forearm, no erythema, edema, followed her. Please see nursing recommendation for measurements. NEUROLOGICAL: Patient is awake, alert and oriented x3. Cranial nerves 2 through 12 are grossly intact. ASSESSMENT AND PLAN 1. Shortness of breath, weakness, edema with mild abdominal pain and ascites, rule out abdominal malignancy. Patient has history of hysterectomy done due to "enlargement" in 1985. Paracentesis with interventional radiology for d iagnostic testing including cytology. 2. Ascites of unclear etiology. Paracentesis completed 02/18 with interventional radiology, continue Lasix 40 mg every 12 hours. Cytology pending. CEA 125- 549 3. Atelectasis. Incentive spirometry. 4. Hypertension. Continue Coreg 25 mg at bedtime. 5. GI prophylaxis. Protonix. 6. DVT prophylaxis. Heparin subcu. 7. Left forearm ulceration. Medihoney daily. 8. Hypokalemia. K-Dur 20 meq cues daily 9. COVID-19 testing negative. Patient has been hospitalized during a pandemic. DISCHARGE PLAN Home possibly Monday Impression and plan of care have been directed as dictated by the signing physician. Rita Chase nurse practitioner acting as scribe for signing physician. Objective - Vital Signs Vital signs: Vital Signs Temp 97.8 F 02/21/21 08:31 Pulse 75 02/21/21 08:31 Resp 18 02/21/21 08:31 BP 119/80 02/21/21 08:31 Pulse Ox 97 02/21/21 08:31 Intake & Output 02/20/21 02/21/21 02/21/21 18:59 06:59 18:59 Intake Total 700 Output Total 1350 1650 750 Balance -1350 -950 -750 Weight 118.8 kg Intake: Oral 700 Output: Urine 1350 1650 750 Other: Voiding Method Toilet - Labs CBC & Chem 7: 02/21/21 06:17 02/21/21 10:27 Labs: Abnormal Lab Results - Last 24 Hours (Table) 02/18/21 02/21/21 Range/Units 03:42 06:17 Chloride 97 L (98-107) mmol/L Carbon Dioxide 32 H (22-30) mmol/L Glucose 116 H (74-99) mg/dL CA 19-9 Antigen 129.0 H (0.0-34.9) U/mL Microbiology - Last 24 Hours (Table) 02/18/21 15:00 Anaerobic Culture - Preliminary Paracentesis Fluid 02/18/21 15:00 Gram Stain - Preliminary Paracentesis Fluid Body Fluid Culture - Preliminary
[2021-02-21] MEDS: carvediloL 12.5 MG TAB PO SCH (20:32)
[2021-02-22] VITALS: TEMP 98.2
[2021-02-22 06:02] LABS: African American GFR (CKD) >90 (>60 ml/min/1.73 sqM); Anion Gap 6 mmol/L; Blood Urea Nitrogen 13 mg/dL (7-17); Calcium 8.8 mg/dL (8.4-10.2); Carbon Dioxide 34 mmol/L (22-30); Chloride 98 mmol/L (98-107); Glucose 102 mg/dL (74-99); Non-African American GFR(CKD) >90 (>60 ml/min/1.73 sqM); Potassium 3.7 mmol/L (3.5-5.1); Sodium 138 mmol/L (137-145)
[2021-02-22] MEDS: PANTOPRAZOLE 40 MG TABLET PO SCH (06:17)
[2021-02-22] MEDS: IPRATROPIUM-ALBUTEROL 3 ML NEB INHALATION SCH ×2 (08:14→11:42)
[2021-02-22] MEDS: POTASSIUM CHLORIDE ER 20 MEQ TAB.ER PO SCH (08:43)
[2021-02-22] MEDS: HEPARIN SODIUM,PORCINE/PF 5,000 UNIT/0.5 ML SYRINGE SQ SCH (08:43)
[2021-02-22] MEDS: FUROSEMIDE 10 MG/ML 4 ML VIAL IV SCH (08:43)
[2021-02-22] MEDS ORDERED: RX INFO: IV CONTRAST WAS GIVEN 1 EACH MISC MISCELLANE PRN (09:46)
--- NOTE | 2021-02-22 10:12 | P.DS ---
Providers Date of admission: 02/18/21 08:55 Expected date of discharge: 02/22/21 Attending physician: Bri Fletcher Consults: 02/19/21 11:12 Consult Physician Routine Consulting Provider: Abner Romeo Consult Reason/Comments: ascites, suspect malignancy Do you want consulting provider notified?: Yes Primary care physician: Jay GaytanYasemin [facility] Course: HISTORY OF PRESENT ILLNESS Is a 65-year-old female patient of Dr. Hazel with past medical history of hypertension, generalized osteoarthritis, overactive bladder, previous hysterectomy. Patient complains of leg swelling with increased weight of 14 pounds over the last couple weeks. She is complaining of shortness of breath and left-sided abdominal pain. She is complaining of feeling weaker and complains of abdominal distention. No fever, chills, night sweats. She denies any history of heart failure. Patient had hysterectomy done in 1985 and ovaries are intact. She denies any history of breast cancer and no history of hormonal therapy. Patient came into the [facility] emergency center for evaluation. She was afebrile, heart rate 92, blood pressure 136/85, pulse ox 95% on room air. WBC 12, hemoglobin 12.1, platelet count 448. INR 1. Electrolytes and renal function normal. Blood sugar 113. Liver function tests were normal. Magnesium 2.2. Troponin negative on 3 draws. Coronavirus PCR not detected. Chest x-ray reveals mild cardiomegaly. Very limited assessment due to marked hypoventilatory changes. Possible patchy right basilar atelectasis versus infiltrate or pneumonia. CAT scan of the abdomen and pelvis with contrast revealed moderately large amount of abdominal ascites fluid. No bowel obstruction. No free air. Small right pleural effusion with basilar mild pulmonary atelectasis. Patient was started on IV Lasix, DuoNeb treatments [facility] consult with interventional radiology for paracentesis diagnostic with cytology. Echocardiogram, CEA 125, CA 199 and CEA ordered. Patient updated regarding concern of underlying malignancy and understands plan of treatment. 02/19: Patient underwent paracentesis with removal of 6.4 L of straw-colored fluid, IV albumin ordered. Cultures are pending. Cytology is pending. Patient has been afebrile, heart rate 83, blood pressure 138/79, pulse ox 96% on room air. Cancer markers are pending. Patient is continued on IV Lasix and patient's weight is down 12 kg. Patient states that her belly feels much better. She denies nausea. She has less lower extremity edema as well. She does have a noted left forearm ulceration that was present on admission, nonhealing wound. Medihoney will be added. Consult in place oncology. Echocardiogram reveals EF of 55-60% with mild concentric left ventricular hypertrophy, mild mitral regurgitation, mild tricuspid regurgitation. 02/20: Patient is found sitting up in chair in no acute distress. Patient has no complaints at this time. Patient is concerned related to next steps for plan of care. Cytology is pending. CEA 125 549. Patient continues to be on Lasix. Her potassium is 3.3 this morning. We will replace and continue a potassium supplement while Lasix is continuing. Lower extremity edema is improving. Patient states that her belly feels much better. Denies any nausea at this time. Patient is tolerating meta-honey to the ulceration site. 02/21: Patient is found ambulatory in the room in no acute distress. Patient states that the lower extremity edema continues to improve. She did have one episode of hypotension last night. The additional dose of Lasix was held. However her blood pressure was 119/80 this morning and the Lasix was given. Her potassium this morning was 3.5. We will continue with K-Dur 20 meq daily. Still awaiting cytology. We'll discuss with patient plan of care and possible [employer] consult prior to her discharge. 02/22: Patient denies any significant pain, lower extremity edema and abdominal fluid is improved. Cytology from peritoneal fluid remains pending. We'll plan to discharge the patient with follow-up with oncology and with patient's PCP. It appears patient will need follow-up with [employer] oncology. Patient will be discharged home today in stable condition. DISCHARGE DIAGNOSES 1. Shortness of breath, weakness, edema with mild abdominal pain and ascites, rule out abdominal malignancy. 2. Ascites of unclear etiology. Paracentesis completed 02/18 with interventional radiology. 3. Atelectasis. 4. Hypertension. 5. Left forearm ulceration. 6. Hypokalemia. 7. COVID-19 testing negative. Patient has been hospitalized during a pandemic. DISCHARGE PLAN Home Impression and plan of care have been directed as dictated by the signing physician. Rita Chase nurse practitioner acting as scribe for signing physician. Patient Condition at Discharge: Good Plan - Discharge Summary Discharge Rx Participant: No New Discharge Prescriptions: New Spironolactone [Aldactone] 12.5 mg PO DAILY #30 tablet Furosemide [Lasix] 40 mg PO DAILY #30 tablet Continue Carvedilol [Coreg] 25 mg PO HS Discharge Medication List Carvedilol [Coreg] 25 mg PO HS 12/04/19 [History] Furosemide [Lasix] 40 mg PO DAILY #30 tablet 02/22/21 [Rx] Spironolactone [Aldactone] 12.5 mg PO DAILY #30 tablet 02/22/21 [Rx] Follow up Appointment(s)/Referral(s): Abner Romeo MD [STAFF PHYSICIAN] - 1 Week (Dr Romeo's office will call you with appointment date and time. ) Jay Hazel DO [Primary Care Provider] - 04/13/21 11:45 am Activity/Diet/Wound Care/Special Instructions: Take medications as prescribed. Follow up with physicians as directed. Call Dr Romeo's office with any questions. Return to ER with any emergent needs. Discharge Disposition: HOME SELF-CARE
--- NOTE | 2021-02-22 12:30 | CT ---
EXAMINATION TYPE: CT chest w con DATE OF EXAM: 02/22/2021 COMPARISON: None HISTORY: Full staging. Abnormal CT Abd/Pel followed by paracentesis. CT DLP: 413 mGycm, Automated exposure control for dose reduction was used. CONTRAST: Performed injected with 100 mL of Isovue M300. TECHNIQUE: Axial images were obtained at 5 mm thick sections. Reconstructed images are reviewed on Tapt[employer] computer in the coronal plane. FINDINGS: Portion of the thyroid visualized is normal. No suspicious lung nodules or focal infiltrates are present. There is minimal right pleural effusion. No enlarged mediastinal or hilar adenopathy is evident. The ascending aorta diameter at the level o f the main pulmonary artery is 3.3 cm. The main pulmonary artery diameter at the bifurcation is 2.[address] sections are obtained through the upper abdomen. Small amount of ascites is present. IMPRESSIONS: 1. Minimal right pleural effusion. 2. Small amount of ascites within the upper abdomen.
[2021-02-22 14:17] VITALS: BP 109/75; PULSE 89; RESP 28
--- NOTE | 2021-02-22 16:14 | P.PN ---
Subjective Progress Note Date: 02/22/21 Principal diagnosis: Abdominal Ascites Ca125 increased 549, Ca 19-9 increased as well - non specific, liver function stable. CT Chest for staging while awaiting finalized path from ascites fluid. Objective - Vital Signs Vital signs: Vital Signs Temp 98.2 F 02/22/21 07:29 Pulse 74 02/22/21 07:29 Resp 15 02/22/21 07:29 BP 126/83 02/22/21 07:29 Pulse Ox 95 02/22/21 07:29 Intake & Output 02/21/21 02/22/21 02/22/21 18:59 06:59 18:59 Intake Total 400 1000 240 Output Total 1500 1500 Balance -1100 -500 240 Weight 120.5 kg Intake: Oral 400 1000 240 Output: Urine 1500 1500 Other: Voiding Method Toilet # Bowel Movements 1 - Exam Alert and oriented, NAD Head: NCNT abdomen: soft, ascites tachy ble edema diminished lung sounds bll - Labs CBC & Chem 7: 02/21/21 06:17 02/22/21 05:27 Labs: Abnormal Lab Results - Last 24 Hours (Table) 02/22/21 Range/Units 05:27 Carbon Dioxide 34 H (22-30) mmol/L Glucose 102 H (74-99) mg/dL Microbiology - Last 24 Hours (Table) 02/18/21 15:00 Gram Stain - Preliminary Paracentesis Fluid Body Fluid Culture - Preliminary Assessment and Plan (1) Abdominal pain Current Visit: Yes Status: Acute Code(s): R10.9 - UNSPECIFIED ABDOMINAL PAIN SNOMED Code(s): 83662691 (2) Ascites Current Visit: Yes Status: Acute Code(s): R18.8 - OTHER ASCITES SNOMED Code(s): 172579732 (3) Bilateral leg edema Current Visit: Yes Status: Acute Code(s): R60.0 - LOCALIZED EDEMA SNOMED Code(s): 272601377 Plan: Abdominal Ascites: Status Post Paracentesis - Awaiting Cytology for ?malignancy Discussed with patient and message sent to office to schedule with Dr. leslie within week
== END 2021-02-22 16:31 | disposition home or self-care (01) | DRG 948 ==
LOC: EC 16:53 → 6NMEDSUR 23:52 → 1SOBS 02-18 00:49 → OBSVTOIN 02-18 08:55 → 6PED 02-18 17:05
PROVIDERS: ADMIT Family Medicine; ATTEND Family Medicine
PROC: 0W9G30Z Drainage of Peritoneal Cavity with Drainage Device, Percutaneous Approach (ICD-10-PCS; principal; 2021-02-19)
DX: R18.8 Other ascites (principal); J98.11 Atelectasis; J40 Bronchitis, not specified as acute or chronic; J90 Pleural effusion, not elsewhere classified; Z68.41 Body mass index [BMI] 40.0-44.9, adult; Z20.822 Contact with and (suspected) exposure to COVID-19; E66.01 Morbid (severe) obesity due to excess calories; E87.6 Hypokalemia; I08.1 Rheumatic disorders of both mitral and tricuspid valves; I95.9 Hypotension, unspecified; I11.0 Hypertensive heart disease with heart failure; M79.89 Other specified soft tissue disorders; L98.499 Non-pressure chronic ulcer of skin of other sites with unspecified severity; I50.9 Heart failure, unspecified; K21.9 Gastro-esophageal reflux disease without esophagitis; M15.9 Polyosteoarthritis, unspecified; R60.0 Localized edema; D25.9 Leiomyoma of uterus, unspecified; M19.90 Unspecified osteoarthritis, unspecified site; R19.00 Intra-abdominal and pelvic swelling, mass and lump, unspecified site; R10.32 Left lower quadrant pain; N32.81 Overactive bladder; Z79.899 Other long term (current) drug therapy; Z90.710 Acquired absence of both cervix and uterus
CPT/HCPCS: 36415; 49083; 71046; 71260; 74177; 76705; 80048; 80053; 82042; 82150; 82378; 82945; 83605; 83615; 83690; 83735; 83880; 84132; 84157; 84484; 85025; 85027; 85610; 85730; 86301; 86304; 87070; 87075; 87205; 87635; 88108; 88305; 88341; 88342; 89050; 93005; 93306; 94640; 99285

== ENCOUNTER 2021-03-18 12:13 | Day surgery (SDC) | payer BC ==
[2021-03-18 12:24] VITALS: RESP 16; TEMP 97.6
[2021-03-18 12:42] LABS: Mean Platelet Volume 7.3; Platelet Count 363 k/uL (150-450)
[2021-03-18 13:27] LABS: Prothrombin Time 10.9 sec (9.0-12.0)
[2021-03-18 14:23] VITALS: PULSE 70
[2021-03-18 14:36] VITALS: BP 125/73
--- NOTE | 2021-03-18 15:05 | US ---
Ultrasound-guided paracentesis. DATE OF EXAM: 03/18/2021 CLINICAL HISTORY: Ascites The procedure was discussed with the patient. The risks, complications, benefits, and alternatives we re discussed and any questions were answered. Informed consent was obtained. The patient was placed s upine on the ultrasound table and prepped and draped in the usual sterile fashion. All elements of maximal barrier technique were utilized. Under ultrasound guidance, access into the right lower quadrant was obtained, via the paracentesis catheter system and direct ultrasound guidanc e. Approximately 4.2 liters of straw-colored fluid was removed. The patient was stable throughout the pr ocedure and remained stable upon discharge from Department of Radiology. IMPRESSION: Successful paracentesis under ultrasound guidance.
== END 2021-03-18 14:50 | disposition home or self-care (01) ==
LOC: RADPROMAIN 12:13
PROVIDERS: ATTEND Internal Medicine Hematology & Oncology
DX: R18.8 Other ascites (principal)
CPT/HCPCS: 36415; 49083; 85049; 85610

== ENCOUNTER 2021-04-09 08:30 | Day surgery (SDC) | payer BC ==
[2021-04-09 09:18] LABS: Mean Platelet Volume 7.1; Platelet Count 253 k/uL (150-450)
[2021-04-09 09:46] LABS: Prothrombin Time 10.6 sec (9.0-12.0)
[2021-04-09 10:05] VITALS: RESP 16; TEMP 97.6
[2021-04-09 10:50] VITALS: BP 126/78; PULSE 62
--- NOTE | 2021-04-09 12:22 | US ---
EXAMINATION TYPE: US paracentesis abd w/image DATE OF EXAM: 04/09/2021 COMPARISON: NONE HISTORY: Ascites. PROCEDURE: Maximal barrier technique was utilized. The skin overlying a suitable pocket of fluid was localized with ultrasound and the overlying skin was prepped and draped. Ultrasound was utilized with sterile technique. Lidocaine was used for local anesthesia and a skin rylan made with a scalpel. Catheter was advanced under direct ultrasound guidance into a suitable pocket of fluid and approximately 2.3 liter s of serous sanguinous fluid were removed. Catheter was withdrawn and hemostasis achieved. There is no immediate complication; the patient is discharged in stable condition. IMPRESSION: STATUS POST ULTRASOUND GUIDED PARACENTESIS FOR PALLIATION OF ASCITES. THIS PROCEDURE WA S PERFORMED BY THE UNDERSIGNED.
== END 2021-04-09 10:47 | disposition home or self-care (01) ==
LOC: RADPROMAIN 08:30
PROVIDERS: ATTEND Internal Medicine Hematology & Oncology
DX: R18.8 Other ascites (principal)
CPT/HCPCS: 36415; 49083; 85049; 85610

== ENCOUNTER → 2021-04-19 | Outpatient (CLI) | payer BC ==
--- NOTE | 2021-04-19 17:18 | XR ---
EXAMINATION TYPE: XR chest 2V DATE OF EXAM: 04/19/2021 COMPARISON: Chest x-ray 02/17/2021 HISTORY: Cough for 2 weeks, shortness of breath, ovarian cancer, C56.9, R18.0, I10, Z71.3 TECHNIQUE: Frontal and lateral views of the chest are obtained. FINDINGS: Patchy density is present within the bilateral lungs. No evident pneumothorax or pleural e ffusion. Cardiac mediastinal silhouette is within normal limits. Bones are unchanged. Patient is rota inocente, aorta is dense. Right hemidiaphragm remains elevated. IMPRESSION: Correlate for pneumonia, consider Covid infection.
== END | disposition home or self-care (01) ==
LOC: RADXRMAIN 14:16
PROVIDERS: ATTEND Internal Medicine Hematology & Oncology
DX: C56.9 Malignant neoplasm of unspecified ovary (principal); I10 Essential (primary) hypertension; J98.4 Other disorders of lung; R18.0 Malignant ascites; Z71.3 Dietary counseling and surveillance
CPT/HCPCS: 71046

== ENCOUNTER → 2021-05-27 | Outpatient (CLI) | payer BC ==
[2021-05-27 12:00] LABS: African American GFR (CKD) >90 (>60 ml/min/1.73 sqM); Blood Urea Nitrogen 16 mg/dL (7-17); Non-African American GFR(CKD) >90 (>60 ml/min/1.73 sqM)
--- NOTE | 2021-05-27 14:40 | CT ---
EXAMINATION TYPE: CT ChestAbdPelvis w con DATE OF EXAM: 05/27/2021 COMPARISON: Prior chest CT February 22, [address] abdomen and pelvis February 17, 2021 HISTORY: Ovarian cancer, observe for mets. Currently on chemotherapy. CT DLP: 1815.9 mGycm. Automated Exposure Control for Dose Reduction was Utilized. CONTRAST: CT scan of the thorax, abdomen and pelvis is performed with oral and with IV Contrast, patient inject ed with 100ml mL of Isovue 300. FINDINGS: LUNGS: Nonspecific new bilateral ill-defined groundglass opacities organizing consolidations are grea test in the lower lungs and in the periphery. Covid-19 infection needs to be considered in current en vironment. Stable tiny right pleural effusion. No pneumothorax seen bilaterally. MEDIASTINUM: There are no new greater than 1 cm hilar or mediastinal lymph nodes. No cardiomegaly o r pericardial effusion is seen. Coronary artery calcification is redemonstrated. LIVER/GB: No significant abnormality is appreciated. PANCREAS: No significant abnormality is seen. SPLEEN: No significant abnormality is seen. ADRENALS: No significant abnormality is seen. KIDNEYS: No significant abnormality is seen. BOWEL: Oral contrast does not reach level of the cecum making evaluation of distal bowel slightly sub optimal. No suspicious small or large bowel dilatation. GENITAL ORGANS: Uterus surgically absent or markedly atrophic. LYMPH NODES: No new or enlarging greater than 1 cm abdominal or pelvic lymph nodes. Some scattered pr ominent but subcentimeter lymph nodes throughout the mesentery are again seen. OSSEOUS STRUCTURES: Multilevel facet arthropathy greatest in the lower lumbar spine. OTHER: Small amount of abdominal and pelvic ascites improved from prior study. Areas of slightly more suspicious slightly nodular and thickened fluid in the mesentery on prior study remained present tho ugh less prominent on current exam versus prior study axial image 78 anterior midabdomen for referenc e. IMPRESSION: 1. Improved intra-abdominal and pelvic ascites. Improved slightly nodular mesenteric fat stranding in which pericardial carcinomatosis cannot be excluded. 2. No new mass or adenopathy to suggest neoplastic progression. 3. New bilateral multifocal groundglass opacities and ill-defined organizing consolidations could re flect product of covid-19 infection in current environment. Correlate clinically. A Yellow level critical message alert has been initiated for Abner Romeo MD via the [employer] on 05/27/2021 2:38 PM. This message alert has been sent to Abner Romeo MD via th e preferences provided by the clinician for the receipt of Radiology Critical Findings. Message ID [id number].
== END | disposition home or self-care (01) ==
LOC: RADCTMAIN 11:15
PROVIDERS: ATTEND Internal Medicine Hematology & Oncology
DX: C56.9 Malignant neoplasm of unspecified ovary (principal); R18.8 Other ascites; R91.8 Other nonspecific abnormal finding of lung field
CPT/HCPCS: 82565; 84520; 71260; 74177; 36415; Q9967

== ENCOUNTER → 2021-06-08 | Outpatient (CLI) | payer BC ==
[2021-06-08 10:42] LABS: Prothrombin Time 10.9 sec (9.0-12.0)
[2021-06-08 10:44] LABS: Anisocytosis Slight; HCT 36.7 % (34.0-46.0); HGB 11.9 gm/dL (11.4-16.0); MCH 30.4 pg (25.0-35.0); MCHC 32.5 g/dL (31.0-37.0); MCV 93.6 fL (80.0-100.0); Macrocytosis Slight; Mean Platelet Volume 7.9; Platelet Count 127 k/uL (150-450); RBC 3.93 m/uL (3.80-5.40); RDW 19.7 % (11.5-15.5); WBC 7.6 k/uL (3.8-10.6)
[2021-06-08 10:47] LABS: Potassium 3.7 mmol/L (3.5-5.1)
[2021-06-08 10:48] LABS: ALT 15 U/L (4-34); AST 20 U/L (14-36); African American GFR (CKD) >90 (>60 ml/min/1.73 sqM); Albumin 3.8 g/dL (3.5-5.0); Albumin/Globulin Ratio 1.1; Alkaline Phosphatase 104 U/L (38-126); Anion Gap 4 mmol/L; Blood Urea Nitrogen 13 mg/dL (7-17); Calcium 9.3 mg/dL (8.4-10.2); Carbon Dioxide 30 mmol/L (22-30); Chloride 106 mmol/L (98-107); Globulin 3.6 g/dL; Glucose 131 mg/dL (74-99); Non-African American GFR(CKD) >90 (>60 ml/min/1.73 sqM); Sodium 140 mmol/L (137-145); Total Bilirubin 0.7 mg/dL (0.2-1.3); Total Protein 7.4 g/dL (6.3-8.2)
== END | disposition home or self-care (01) ==
LOC: LABWHC1 09:51
PROVIDERS: ATTEND Family Medicine
DX: Z01.812 Encounter for preprocedural laboratory examination (principal); I10 Essential (primary) hypertension; E78.5 Hyperlipidemia, unspecified; E28.9 Ovarian dysfunction, unspecified; C80.1 Malignant (primary) neoplasm, unspecified
CPT/HCPCS: 36415; 80053; 85027; 85610; 93005

== ENCOUNTER → 2021-09-28 | Outpatient (CLI) | payer BC ==
--- NOTE | 2021-09-28 19:24 | CT ---
EXAMINATION TYPE: CT ChestAbdPelvis w con DATE OF EXAM: 09/28/2021 INDICATION: ovarian CA COMPARISON: 05/27/2021 CT DLP: 1770.5 mGycm CONTRAST: Performed with Oral Contrast and with IV Contrast, patient injected with 100 mL of Isovue 300. TECHNIQUE: Axial images at 5 mm thick sections. Reconstructed images in the coronal plane. Delayed images through the kidneys. FINDINGS: CT CHEST: Portion of the thyroid visualized is normal. There is some diffuse stranding within the upper lung thakkar. Mild thickening along the posterior lat eral right lung base measuring 1.7 cm. Some mild strandings at the lung bases. Overall, this has impr jan over the interval. No enlarged mediastinal or hilar adenopathy is evident. The ascending aorta diameter at the level of the main pulmonary artery is 3.3 cm. The main pulmonary artery diameter at the bifurcation is 3.1 cm. Coronary artery calcifications present. CT ABDOMEN: Ascites is present. Liver: There is a hypodense area anterior to the right lobe of the liver. A large hypodense collectio n is under the right diaphragm displacing the liver or is within the right lobe of the liver. Spleen: Normal Pancreas: Normal Adrenal glands: The adrenal glands are normal. Gallbladder: Normal Kidneys: No masses are evident. No hydronephrosis is present. No cysts are present. Delayed images were obtained through the kidneys, which remain unremarkable. Aorta: Vascular calcification is within the aorta. Inferior vena cava: Normal. CT PELVIS: No omental caking is identified. Small amount of free fluid is within the pelvis. No suspicious changes identified within the loops of bowel. There is some fecal debris within the col on. No dilated loops of bowel are evident. There are loops of bowel which are incompletely distended or lack oral contrast limiting their evaluation. Appendix: Not identified. Urinary bladder: Normal. Genitourinary structures: Surgically absent Osseous structures: No suspicious lytic or sclerotic lesions. Facet degenerative changes are within t he lower lumbar spine. IMPRESSIONS: 1. Interval development of mild increase in ascites as well as large focal collections adjacent to an d displacing the liver. 2. Improved aeration to the lungs with resolving infiltrates. Mild residual remains.
== END | disposition home or self-care (01) ==
LOC: RADCTMAIN 09:58
PROVIDERS: ATTEND Internal Medicine Hematology & Oncology
DX: C56.9 Malignant neoplasm of unspecified ovary (principal); R18.8 Other ascites; R91.8 Other nonspecific abnormal finding of lung field
CPT/HCPCS: 71260; 74177; Q9967

== ENCOUNTER → 2021-12-27 | Outpatient (CLI) | payer MEDICARE, BC ==
[2021-12-27 09:50] LABS: African American GFR (CKD) >90 (>60 ml/min/1.73 sqM); Blood Urea Nitrogen 20 mg/dL (7-17); Non-African American GFR(CKD) >90 (>60 ml/min/1.73 sqM)
--- NOTE | 2021-12-27 12:45 | CT ---
EXAMINATION TYPE: CT ChestAbdPelvis w con DATE OF EXAM: 12/27/2021 COMPARISON: CT dated 09/28/2021 HISTORY: Follow up for ovarian cancer. CT DLP: 1644.7 mGycm Automated exposure control for dose reduction was used. CONTRAST: CT scan of the chest, abdomen and pelvis is performed with Oral Contrast and with IV Contrast, patien t injected with 100ml mL of Isovue 300. FINDINGS: LUNGS: Slightly smaller pleural-based nodule at the posterior aspect of the right lung base measuring 12 mm compared to 17 mm previously. The remainder of the previously seen peripheral pulmonary fibrot ic changes, irregular nodularity (measuring up to 7 mm in the left lower lung lobe) and the periphera l pulmonary reticulations with irregular distribution mainly in the mid and lower lung zones are stab le which could be related to sequela of previous infection (including Covid 19 infection) however oth er infiltrative process cannot be excluded. No new suspicious or progressive lung lesion. Patent trac hea and main bronchi. Minimal right pleural fluid. MEDIASTINUM: Dilated left atrium, please correlate with echocardiographic results. Coronary arterial atherosclerotic calcifications. No sizable pericardial effusion. No progressive or pathologically enl arged lymph nodes in the chest. OTHER: Degenerative changes of the thoracic spine. No gross aggressive bone lesion. LIVER/GB: Slightly smaller well-defined collection centered over the right hemidiaphragm measuring 12 .1 cm compared to 12.8 cm previously. It indents the adjacent portion of the hepatic dome, stable. Th is could be supra- or infradiaphragmatic. Stable 6 mm hypodensity at the posterior aspect of the righ t hepatic lobe. No definite new hepatic focal lesion identified. No radiodense gallbladder calculi. PANCREAS: No significant abnormality is seen. SPLEEN: No significant abnormality is seen. ADRENALS: No significant abnormality is seen. KIDNEYS: No significant abnormality is seen. BOWEL: No evidence of bowel obstruction. Moderate fecal loading of the colon. REPRODUCTIVE ORGANS: Suspected previous hysterectomy. No gross adnexal mass. LYMPH NODES: Grossly stable bilateral inguinal, external iliac and retroperitoneal lymph nodes. No pr ogressive lymphadenopathy in the abdomen or the pelvis. OSSEOUS STRUCTURES: Degenerative changes of the lumbar spine. No gross aggressive bone lesion. OTHER: Scattered arterial atherosclerotic calcifications. Persistent small amount of abdominal and pe lvic fluid with small pockets of fluid seen surrounding the liver and the spleen and causing scallopi ng of the hepatic and splenic margins, malignant fluid cannot be excluded. Persistent peritoneal nodu larity involving the omentum and most evident in the left upper quadrant, difficult to precisely ana ure and grossly stable compared to the previous CT scan, possibly representing peritoneal carcinomato sis. IMPRESSION: 1. Slightly smaller pleural-based nodule in the right lung base. Stable pulmonary parenchymal changes which could represent sequela of previous infection (like Covid 19 infection) however other infiltra tive lung process or interstitial lung disease cannot be excluded, for clinical correlation and furth er workup. No new or progressive lung lesion. 2. Persistent localized collection centered on the right hemidiaphragm with mass effect as described above, slightly smaller compared to the previous CT scan. 3. Persistent signs of peritoneal carcinomatosis and scattered small pockets of fluid, not significan tly changed compared to the previous CT scan. No progressive disease seen in the abdomen or the pelvi s. Other findings as described above.
== END | disposition home or self-care (01) ==
LOC: RADCTMAIN 09:08
PROVIDERS: ATTEND Internal Medicine Hematology & Oncology
DX: C56.9 Malignant neoplasm of unspecified ovary (principal); R91.1 Solitary pulmonary nodule
CPT/HCPCS: 82565; 84520; 71260; 74177; 36415; Q9967

== ENCOUNTER → 2022-04-06 | Outpatient (CLI) | payer MEDICARE, BC ==
[2022-04-06 12:45] LABS: African American GFR (CKD) >90 (>60 ml/min/1.73 sqM); Blood Urea Nitrogen 18 mg/dL (7-17); Non-African American GFR(CKD) >90 (>60 ml/min/1.73 sqM)
--- NOTE | 2022-04-06 14:38 | CT ---
EXAMINATION TYPE: CT ChestAbdPelvis w con CT DLP: 1614.8 mGycm, Automated exposure control for dose reduction was used. DATE OF EXAM: 04/06/2022 1:59 PM COMPARISON: CT 12/27/2021 CLINICAL INDICATION:Female, 66 years old with history of C56.9 OVARIAN CANCER, ovarian CA Technique: Multiple axial images of the chest, abdomen, and pelvis were obtained. Two-dimensional cor onal and sagittal reconstructions were obtained. Contrast used:70 mL of Isovue 300 with IV Contrast, Oral contrast used: with Oral Contrast Findings: CHEST: LUNGS/ PLEURA: There is a moderate right pleural effusion. No evidence of pneumothorax. Streaky atele ctasis seen within the lungs. Pulmonary nodules seen within the right lung base is no longer visualiz ed secondary to consolidation changes.No evidence of new suspicious pulmonary nodule. AIRWAY: Patent and unremarkable. HEART: Size within normal limits. Atherosclerosis of the coronary arteries. MEDIASTINUM: No gross evidence of adenopathy. VASCULATURE: No aortic aneurysm. MUSCULOSKELETAL: No acute osseous abnormalities. SOFT TISSUES/LYMPH NODES: Unremarkable. LOWER NECK: No significant findings. ABDOMEN: ABDOMEN LIVER: Unremarkable GALLBLADDER AND BILE DUCTS: Unremarkable. PANCREAS: Unremarkable. SPLEEN: Unremarkable. ADRENAL GLANDS: Unremarkable. KIDNEYS AND URETERS: No evidence of hydronephrosis or renal calculus. The ureters are unremarkable. PELVIS BLADDER: Unremarkable REPRODUCTIVE: Unremarkable. ABDOMEN & PELVIS STOMACH AND BOWEL: No evidence of bowel obstruction. Large stool burden throughout the colon. PERITONEUM: No evidence of pneumoperitoneum. There is a small amount of free fluid in the abdomen. Mo re focal cystic structure above the liver measuring up to 10 cm is similar. Soft tissue nodularity wi thin the omentum is again visualized pronounced in the left upper quadrant. Nodularity may be mildly increased in size. VASCULATURE: No evidence of aortic aneurysm. MUSCULOSKELETAL: No acute osseous abnormalities, grade 1 anterolisthesis of L4 and L5 with multilevel disc degeneration changes of the spine. LYMPH NODES: No gross evidence for lymphadenopathy. SOFT TISSUE/ABDOMINAL WALL: Unremarkable IMPRESSION: 1. Interval development of moderate right pleural effusion and redemonstration of small ascites with more loculated cystic structure above the liver measuring up to 10.0 cm. The prior right lower lobe pulmonary nodule is no longer visualized due to consolidation changes within the right lower lobe lik bridger secondary to atelectasis. No evidence of new suspicious pulmonary nodule. Overall the visualized portion of the abdomen is not significantly changed from prior. 2. Persistent findings of soft tissue within the peritoneum suggestive of peritoneal carcinomatosis. This may be mildly increased in size however it somewhat ill-defined and hard to measure.
== END | disposition home or self-care (01) ==
LOC: RADCTMAIN 11:52
PROVIDERS: ATTEND Internal Medicine Hematology & Oncology
DX: C56.9 Malignant neoplasm of unspecified ovary (principal); J90 Pleural effusion, not elsewhere classified; R18.8 Other ascites
CPT/HCPCS: 82565; 84520; 71260; 74177; 36415; Q9967

== ENCOUNTER → 2022-04-21 | Outpatient (CLI) | payer MEDICARE, BC ==
[2022-04-21 15:47] LABS: African American GFR (CKD) 89.7 (60.0-200.0); Albumin 3.6 g/dL (3.8-4.9); Albumin/Globulin Ratio 1.29 (1.60-3.17); Anion Gap 7.5 mmol/L (10.00-18.00); BUN/Creat Ratio 18.63 Ratio (12.00-20.00); Blood Urea Nitrogen 14.9 mg/dL (9.0-27.0); Calcium 9.2 mg/dL (8.7-10.3); Carbon Dioxide 30.5 mmol/L (20.0-27.5); Globulin 2.8 g/dL (1.6-3.3); Non-African American GFR(CKD) 77.4 (60.0-200.0); Potassium 4.5 mmol/L (3.5-5.5); Total Bilirubin 0.3 mg/dL (0.30-1.20); Total Protein 6.4 g/dL (6.2-8.2)
[2022-04-21 17:52] LABS: Basophils # (A) 0.04 X 10*3/uL (0.00-0.10); Basophils % (A) 0.6 %; Eosinophils # (A) 0.09 X 10*3/uL (0.04-0.35); Eosinophils % (A) 1.4 %; HCT 38.4 % (37.2-46.3); HGB 11.9 g/dL (12.0-15.0); Immature Grans, Automated 0.3 %; Lymphocytes % (A) 21.3 %; MCH 29.8 pg (27.0-32.0); MCV 96.2 fL (80.0-97.0); Mean Platelet Volume 8.6 fL (9.5-12.2); Monocytes # (A) 0.52 X 10*3/uL (0.20-1.00); Monocytes % (A) 7.9 %; NRBC Per 100 WBC 0 /100 WBCS (0.0-0.0); Neutrophils % (A) 68.5 %; Platelet Count 347 X 10*3/uL (140-440); RBC 3.99 X 10*6/uL (4.10-5.20); RDW 13.2 % (11.5-14.5); WBC 6.57 X 10*3/uL (4.50-10.00)
== END | disposition home or self-care (01) ==
LOC: LABWHC1 09:19
PROVIDERS: ATTEND Obstetrics & Gynecology
DX: C56.1 Malignant neoplasm of right ovary (principal)
CPT/HCPCS: 36415; 80053; 82378; 85025

== ENCOUNTER → 2022-10-07 | Outpatient (CLI) | payer MEDICARE ==
[2022-10-07 15:30] LABS: African American GFR (CKD) >90 (>60 ml/min/1.73 sqM); Blood Urea Nitrogen 20 mg/dL (7-17); Non-African American GFR(CKD) >90 (>60 ml/min/1.73 sqM)
--- NOTE | 2022-10-11 07:30 | CT ---
EXAMINATION TYPE: CT ChestAbdPelvis w con DATE OF EXAM: 10/07/2022 COMPARISON: Most recent CT July 13, 2022 HISTORY: h/o ovarian CA, f/u CT DLP: 1694 mGycm. Automated Exposure Control for Dose Reduction was Utilized. CONTRAST: CT scan of the thorax, abdomen and pelvis is performed with oral and with IV Contrast, patient inject ed with 100 mL of Isovue 300. FINDINGS: LUNGS: Large right-sided pleural effusion or fluid collection remains present. Some local mass effect with left-sided mediastinal shift is redemonstrated. There is central compressive atelectasis and/or consolidation redemonstrated. There is mild parenchymal fibrosis anterior left midlung and mild to m oderate peripheral left lower lobe fibrosis posteriorly redemonstrated on current study. No left-side d pleural effusion. MEDIASTINUM: There are no new greater than 1 cm hilar or mediastinal lymph nodes. No cardiomegaly o r pericardial effusion is seen. Coronary artery calcification is redemonstrated. There is tortuous m edial deviated right lower lobe pulmonary arterial branch redemonstrated. Calcification at the level of the mitral valve is redemonstrated. LIVER/GB: Round heterogeneous hypodense mass or area in the anterior right upper quadrant has mass ef fect on the adjacent liver and causes anterior right diaphragm elevation measures 9.7 x 8.9 cm on cur rent study not significantly changed in size versus prior study. Some vague hypodense areas posterior right hepatic lobe axial image 326 are now identified. PANCREAS: No significant abnormality is seen. SPLEEN: No significant abnormality is seen. ADRENALS: No significant abnormality is seen. KIDNEYS: No significant abnormality is seen. BOWEL: Oral contrast reaches level of sigmoid colon on current study. No suspicious small or large ramin wel dilatation. GENITAL ORGANS: Uterus surgically absent or markedly atrophic. LYMPH NODES: No new or enlarging greater than 1 cm abdominal or pelvic lymph nodes. Some scattered pr ominent but subcentimeter lymph nodes throughout the mesentery are again seen. OSSEOUS STRUCTURES: Multilevel facet arthropathy greatest in the lower lumbar spine is redemonstrated . OTHER: Intraperitoneal ascites is mild to moderate in appearance and fairly stable from most recent C T. Density slightly greater than simple fluid. This along with mass effect and loculated component ad jacent to liver with local mass effect is strongly suspicious for peritoneal carcinomatosis. Overlying vertical subcutaneous scar in the midline of the anterior abdominal and pelvic wall is rede monstrated. IMPRESSION: 1. Stable large right-sided pleural effusion or nonsimple fluid collection. Stable nonsimple intraper itoneal ascites is strongly suspicious for intraperitoneal carcinomatosis. Local mass effect is redem onstrated. No bowel obstruction is seen. No significant change from most recent CT.
== END | disposition home or self-care (01) ==
LOC: RADCTMAIN 14:17
PROVIDERS: ATTEND Internal Medicine Hematology & Oncology
DX: C56.9 Malignant neoplasm of unspecified ovary (principal); D70.2 Other drug-induced agranulocytosis; I10 Essential (primary) hypertension; J90 Pleural effusion, not elsewhere classified; R18.8 Other ascites
CPT/HCPCS: 82565; 84520; 71260; 74177; 36415; Q9967

== ENCOUNTER → 2023-05-24 | Outpatient (CLI) | payer MEDICARE ==
[2023-05-24 15:12] LABS: African American GFR (CKD) >90 (>60 ml/min/1.73 sqM); Blood Urea Nitrogen 15 mg/dL (7-17); Non-African American GFR(CKD) >90 (>60 ml/min/1.73 sqM)
--- NOTE | 2023-05-24 17:15 | CT ---
EXAMINATION TYPE: CT ChestAbdPelvis w con CT DLP: 1381.7 mGycm, Automated exposure control for dose reduction was used. DATE OF EXAM: 05/24/2023 4:39 PM COMPARISON: 01/11/2023. CLINICAL INDICATION:Female, 67 years old with history of C56.9 OVARIAN CA; PHH, Hx. of ovarian ca. Technique: CT ChestAbdPelvis w con; Multiple axial images were obtained. Two-dimensional coronal and sagittal reconstructions were obtained. Contrast used:100 mL of Isovue 300 with IV Contrast, Oral contrast used: with Oral Contrast Findings: CHEST: LUNGS/ PLEURA: Large right pleural effusion with associated atelectasis. There is near complete atele ctasis of the right lung. No left pleural effusion. AIRWAY: Patent and unremarkable. HEART: The heart is within normal limits for size. There is mild thyromegaly present. Large MEDIASTINUM: No gross evidence of adenopathy. Redemonstration of fluid collection just above the live r possibly within the abdominal cavity measuring 8.7 x 7.0 cm. VASCULATURE: No aortic aneurysm. No significant atherosclerotic disease. MUSCULOSKELETAL: Moderate disc degeneration changes are present throughout the thoracolumbar spine. SOFT TISSUES/LYMPH NODES: Unremarkable. LOWER NECK: No significant findings. ABDOMEN: ABDOMEN LIVER: Unremarkable GALLBLADDER AND BILE DUCTS: Unremarkable. PANCREAS: Unremarkable. SPLEEN: Unremarkable. ADRENAL GLANDS: Unremarkable. KIDNEYS AND URETERS: No evidence of hydronephrosis or renal calculus. The ureters are unremarkable. PELVIS BLADDER: Unremarkable REPRODUCTIVE: Unremarkable. ABDOMEN & PELVIS STOMACH AND BOWEL: No evidence of bowel obstruction. PERITONEUM: No evidence of pneumoperitoneum. Similar trace free fluid throughout the abdomen. VASCULATURE: No evidence of aortic aneurysm. MUSCULOSKELETAL: No acute osseous abnormalities. Moderate disc degeneration changes are present throu ghout the thoracolumbar spine. LYMPH NODES: No gross evidence for lymphadenopathy. SOFT TISSUE/ABDOMINAL WALL: Unremarkable IMPRESSION: 1. No evidence for new lymphadenopathy enlarging mass within the chest abdomen or pelvis.. 2. Similar Large right pleural effusion with associated atelectasis of the right lung. 3. Similar right subdiaphragmatic fluid collection compared to priors
== END | disposition home or self-care (01) ==
LOC: RADCTMAIN 14:24
PROVIDERS: ATTEND Internal Medicine Hematology & Oncology
DX: C56.9 Malignant neoplasm of unspecified ovary (principal); J90 Pleural effusion, not elsewhere classified; J98.11 Atelectasis
CPT/HCPCS: 82565; 84520; 71260; 74177; 36415; Q9967

== ENCOUNTER → 2023-06-26 | Day surgery (SDC) | payer MEDICARE ==
[~2023-06-26] MED LIST changes: -LACTATED RINGERS 1,000 ML IV SCH; -ONDANSETRON 4 MG/2 ML VIAL IVP ONE; +SODIUM CHLORIDE 0.9% 500 ML 500 ML in EMPTY BAG 1 BAG IV PRN; -ceFAZolin 3 GM in SODIUM CHLORIDE 0.9% 100 ML IVPB ONE; -fentaNYL (PF) 50 MCG/ML 2 ML AMP IV PRN
[2023-06-26 12:04] VITALS: RESP 16; TEMP 97.8
[2023-06-26 12:34] VITALS: BP 152/90; PULSE 65
--- NOTE | 2023-06-26 12:37 | XR ---
EXAMINATION TYPE: XR chest 1V portable DATE OF EXAM: 06/26/2023 12:29 PM CLINICAL INDICATION:Female, 67 years old with history of post thoracentesis; [facility] COMPARISON: Chest radiographs from 04/19/2021. TECHNIQUE: XR chest 1V portable Frontal view of the chest. FINDINGS: Lungs/Pleura: Near complete opacification of the right lung.. The left lung is relatively clear. Ther e is no evidence of , focal consolidation, or pneumothorax. Pulmonary vascularity: Unremarkable. Heart/mediastinum: Cardiomediastinal silhouette is unremarkable. Musculoskeletal: No acute osseous pathology. Other findings: None IMPRESSION: Large right pleural effusion with near complete opacification of the right hemithorax.
--- NOTE | 2023-06-26 19:16 | OP ---
OPERATIVE REPORT DATE OF SERVICE : PROCEDURE PERFORMED: Right-sided thoracentesis. PREOPERATIVE DIAGNOSIS: Large right pleural effusion. POSTOPERATIVE DIAGNOSIS: Large right pleural effusion. ANESTHESIA USED: 2 mL of 1% lidocaine. DESCRIPTION OF PROCEDURE: The patient had an ultrasound prior to the procedure, she came up to the procedure room, and she was placed in a sitting upright position, the marking of the ultrasound was placed at the 8th intercostal space and the posterior axillary line. The area below the right scapula was prepared in a sterile fashion and drapes were applied. At the area of the marking, the area was anesthetized with lidocaine. A 26-gauge needle was inserted at the same site into the pleural space. Fluid was localized. Then, a small tiny incision was made at the same site, and a standard thoracentesis catheter and needle inserted at the same site advanced into the pleural space, and as the fluid was obtained, the catheter was advanced over the needle into the pleural space. Freely flowing fluid was removed, roughly a total of 875 mL of dark brown fluid was removed from the right pleural space. The patient was having significant amount of discomfort and pain around or after draining a 75 mL, and the fluid was still draining. Considering the discomfort the patient was having, no more drainage was made, and the catheter was pulled out of the pleural space. Fluid was sent for different diagnostic studies. Chest x-ray showed no complications, but the patient continues to have significant amount of pleural effusion that needs to be drained probably within a week or 2 weeks from now. In the meantime, the fluid was sent for different diagnostic studies. The procedure was well tolerated, no complications and the patient will be discharged home and she will follow up with me in 1 week. MMODL / IJN: [id number] /
[2023-06-27 23:44] LABS: Glucose, BF Source Pleural fluid; Glucose, Body Fluid <2 mg/dL; LDH, Body Fluid Source Pleural fluid; T. Protein, Body Fluid Source Pleural fluid; Total Protein, Body Fluid >3600 mg/dL
== END ==
LOC: PROCWHC3 10:44
PROVIDERS: ATTEND Internal Medicine
DX: J90 Pleural effusion, not elsewhere classified (principal)
CPT/HCPCS: 32554; 71045; 82945; 83615; 84157; 87070; 87075; 87205; 88108; 88305

== ENCOUNTER → 2023-06-26 | Outpatient (CLI) | payer MEDICARE ==
--- NOTE | 2023-06-26 21:45 | US ---
EXAMINATION TYPE: US chest DATE OF EXAM: 06/26/2023 COMPARISON: 06/20/2023 - XR Chest CLINICAL INDICATION: Female, 67 years old with history of J90 J90 PLEURAL EFFUSION, NOT ELSEWHERE CLA SSIFIED; Patient denies any signs or symptoms at this time TECHNIQUE: Targeted ultrasound of the posterior lower bilateral hemithoraces EXAM MEASUREMENTS: Right Pleural Effusion pocket size: 10.4 cm Right skin surface to fluid distance: 2.0 cm Left Pleural Effusion pocket size: 0 cm Left skin surface to fluid distance: 0 cm Right side marked for possible thoracentesis outside the dept. Pulmonologists are able to review the images in the patient?s EMR. IMPRESSIONS: Moderate to large sized right pleural effusion.
== END | disposition home or self-care (01) ==
LOC: RADUSWWP 10:39
PROVIDERS: ATTEND Internal Medicine
DX: J90 Pleural effusion, not elsewhere classified (principal)
CPT/HCPCS: 76604

== ENCOUNTER → 2023-07-28 | Day surgery (SDC) | payer MEDICARE ==
[2023-07-26 11:43] VITALS: BMI 33.5
[~2023-07-28] MED LIST changes: +HYDROmorphone 0.5 MG/0.5 ML SYRINGE IVP PRN; +KETAMINE HCL IN 0.9 % NACL 50 MG/5 ML SYRINGE ONE; +MIDAZOLAM 2 MG/2 ML VIAL IV PRN; +MIDAZOLAM 2 MG/2 ML VIAL ONE; +PROPOFOL 10 MG/ML 20 ML VIAL IV ONE; -SODIUM CHLORIDE 0.9% 500 ML 500 ML in EMPTY BAG 1 BAG IV PRN
[2023-07-28] MEDS: LACTATED RINGERS 1,000 ML IV SCH (12:47)
[2023-07-28] MEDS: ONDANSETRON 4 MG/2 ML VIAL IVP ONE (13:16)
[2023-07-28] MEDS: DEXAMETHASONE SOD PHOSPHATE 4 MG/ML 1 ML VIAL IV ONE (13:16)
[2023-07-28 13:45] VITALS: RESP 16
[2023-07-28] MEDS: LIDOCAINE 1% INJ 10MG/ML (5 ML VIAL-PF) SQ ONE (14:06)
--- NOTE | 2023-07-28 14:32 | P.OP ---
Date of Procedure: 07/28/23 Preoperative Diagnosis: Malignant recurrent R sided effusion Hx of Ovarian CA Postoperative Diagnosis: Same Procedure(s) Performed: Right sided pleurX insertion under flouroscopic guidance Implants: PleurX Anesthesia: HARPAL Surgeon: Petey Sherwood Estimated Blood Loss (ml): 5 Pathology: other (pleural fluid for cytology) Condition: stable Disposition: PACU Indications for Procedure: This patient is a 67 year old F with a hx of ovarian cancer who developed recurrent malignant pleural effusion. Cytology was positive for metastatic cancer. She now requires a pleurX. Operative Findings: 750cc of serous fluid removed Description of Procedure: The patient was brought back to the OR and placed in the supine position. She was sedated and her right chest was prepped and draped. Antibiotics were given. 1% lidocaine was used to anesthetize the skin in two areas. The catheter was tunneled from anterior to posterior. The needle was introduced into the chest with brown murky fluid return. Wire was inserted. Flouroscopy was used to confirm placement. The catheter was introduced into the chest via the peel away sheath. Final xray showed appropriate placement.
[2023-07-28 14:55] VITALS: TEMP 98
[2023-07-28 15:29] VITALS: BP 160/82; PULSE 79
--- NOTE | 2023-07-28 17:01 | FL ---
EXAMINATION TYPE: FL guidance operating room Intraoperative/procedural fluoroscopic services were pro vided. Total fluoroscopy time is 6 seconds with a total of 2 submitted images to PACS. Please see the operative/procedural note for further details. DAP: [id number] mGym2
== END | disposition home health service (06) ==
LOC: OR 12:03
PROVIDERS: ATTEND Thoracic Surgery (Cardiothoracic Vascular Surgery)
DX: C78.01 Secondary malignant neoplasm of right lung (principal); J91.0 Malignant pleural effusion; Z85.43 Personal history of malignant neoplasm of ovary
CPT/HCPCS: 32554; 88108; 88305; J2250; J1100; J0690; J2405; J2001; J2704

== ENCOUNTER → 2023-08-30 | Outpatient (CLI) | payer MEDICARE ==
[2023-08-30 15:48] LABS: African American GFR (CKD) >90 (>60 ml/min/1.73 sqM); Blood Urea Nitrogen 20 mg/dL (7-17); Non-African American GFR(CKD) 83 (>60 ml/min/1.73 sqM)
--- NOTE | 2023-08-30 18:35 | CT ---
EXAMINATION TYPE: CT ChestAbdPelvis w con CT DLP: 1281.9 mGycm, Automated exposure control for dose reduction was used. 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 Two-dimensional coronal and sagittal reconstructions were obtained. Contrast used:100ml mL of Isovue 300 with IV Contrast, Oral contrast used: with Oral Contrast Findings: CHEST: LUNGS/ PLEURA: Previous larger pleural effusion now inserts hydropneumothorax with consolidative colon ges. There is thoracotomy tube in place with distal tip terminating in the pleural fluid posteriorly level patient is lying supine. Large right pleural effusion with associated atelectasis. There is sydnie r complete atelectasis of the right lung. No left pleural effusion. AIRWAY: Patent and unremarkable. HEART: The heart is within normal limits for size. There is mild thyromegaly present. Large MEDIASTINUM: No gross evidence of adenopathy. Redemonstration of fluid collection just above the live r possibly within the abdominal cavity measuring 8.7 x 7.0 cm. VASCULATURE: No aortic aneurysm. No significant atherosclerotic disease. MUSCULOSKELETAL: Moderate disc degeneration changes are present throughout the thoracolumbar spine. SOFT TISSUES/LYMPH NODES: Unremarkable. LOWER NECK: No significant findings. ABDOMEN: ABDOMEN LIVER: Unremarkable GALLBLADDER AND BILE DUCTS: Unremarkable. PANCREAS: Unremarkable. SPLEEN: Unremarkable. ADRENAL GLANDS: Unremarkable. KIDNEYS AND URETERS: No evidence of hydronephrosis or renal calculus. The ureters are unremarkable. PELVIS BLADDER: Unremarkable REPRODUCTIVE: Unremarkable. ABDOMEN & PELVIS STOMACH AND BOWEL: No evidence of bowel obstruction. PERITONEUM: No evidence of pneumoperitoneum. Similar fluid scattered throughout the abdomen VASCULATURE: No evidence of aortic aneurysm. MUSCULOSKELETAL: No acute osseous abnormalities. Moderate disc degeneration changes are present throu ghout the thoracolumbar spine. LYMPH NODES: No gross evidence for lymphadenopathy. SOFT TISSUE/ABDOMINAL WALL: Unremarkable IMPRESSION: 1. Interval development of right hydropneumothorax with pigtail catheter in place. Correlate for tub e leak. 2. No evidence for new lymphadenopathy or enlarging mass within the chest abdomen or pelvis.. 3. Similar right subdiaphragmatic fluid collection compared to priors
== END | disposition home or self-care (01) ==
LOC: RADCTMAIN 14:55
PROVIDERS: ATTEND Internal Medicine Hematology & Oncology
DX: J94.8 Other specified pleural conditions (principal); C56.9 Malignant neoplasm of unspecified ovary; Z97.8 Presence of other specified devices
CPT/HCPCS: 82565; 84520; 71260; 74177; 36415; Q9967

== ENCOUNTER → 2023-11-09 | Outpatient (CLI) | payer MEDICARE ==
--- NOTE | 2023-11-09 13:29 | USB ---
Reason for Exam: Clinical finding. Patient History: Menarche at age 13. Patient has no children. Hysterectomy at age 29. Postmenopausal. Previous chemotherapy at age 64. Core Biopsy on the Right side. Excisional Biopsy on the Right side. Excisional Biopsy on the Right side. Risk Values: Leona 5 year model risk: 2.8%. NCI Lifetime model risk: 9.9%. Technique: Method: Targeted. Prior Study Comparison: 11/17/2015 Bilateral Screening Mammogram, [facility]. 01/19/2018 Bilateral Screening Mammogram, [facility]. 11/11/2019 Bilateral Screening Mammogram, [facility]. Findings: The area of palpable concern of the left breast, the axilla of the left breast and the retroareolar of the left breast were scanned. Hypoechoic mass with irregular margins measuring 1.2 cm x 0.9 cm. Tissue diagnosis is recommended. This may reflect an abnormal lymph node. Overall Assessment: Highly suggestive of malignancy, BI-RAD 5 Management: Ultrasound Core Biopsy of the left breast. A clinical breast exam by your physician is recommended on an annual basis and results should be correlated with mammographic findings. This exam should not preclude additional follow-up of suspicious palpable abnormalities. Results were given to the patient verbally at the time of exam. Electronically signed and approved by: Linwood Taylor M.D. Radiologis
--- NOTE | 2023-11-09 13:32 | MM ---
Reason for Exam: Clinical finding. Last mammogram was performed 4 year(s) and 0 month(s) ago. Patient History: Menarche at age 13. Patient has no children. Hysterectomy at age 29. Postmenopausal. Previous chemotherapy at age 64. Core Biopsy on the Right side. Excisional Biopsy on the Right side. Excisional Biopsy on the Right side. Risk Values: Leona 5 year model risk: 2.8%. NCI Lifetime model risk: 9.9%. Prior Study Comparison: 08/12/2004 Bilateral Screening Mammogram, [facility]. 08/16/2004 Left Diagnostic Ultrasound, [facility]. 03/03/2005 Left Diagnostic Mammogram, [facility]. 12/10/2010 Bilateral Screening Mammogram, [facility]. 02/18/2013 Bilateral Screening Mammogram, [facility]. 11/17/2015 Bilateral Screening Mammogram, [facility]. 01/19/2018 Bilateral Screening Mammogram, [facility]. 11/11/2019 Bilateral Screening Mammogram, [facility]. Tissue Density: The breasts are heterogeneously dense, which may obscure small masses. Findings: Analyzed By CAD. At the site of previous lymph node there is an irregular nodular density which may reflect an abnormal lymph node measuring 1.3 cm left upper outer quadrant 13 cm from the nipple. Ultrasound is recommended. There is chronic nodularity of the right breast unchanged from multiple prior. No suspicious microcalcifications are present. Overall Assessment: Incomplete: need additional imaging evaluation, BI-RAD 0 Management: Diagnostic Breast Ultrasound of the left breast. . Results were given to the patient verbally at the time of exam. Patient should continue monthly self-breast exams. A clinical breast exam by your physician is recommended on an annual basis. This exam should not preclude additional follow-up of suspicious palpable abnormalities. Note on Leona scores and lifetime risk: 1. A Leona score greater than 3% is considered moderate risk. If this is the case, consider specialist referral to assess eligibility for a risk reducing agent. 2. If overall lifetime risk for the development of breast cancer is 20% or higher, the patient may qualify for future screening with alternating mammogram and breast MRI. Electronically signed and approved by: Linwood Taylor M.D. Radiologis
== END | disposition home or self-care (01) ==
LOC: RADMAMWWP 12:42
PROVIDERS: ATTEND Internal Medicine Hematology & Oncology
DX: N63.20 Unspecified lump in the left breast, unspecified quadrant (principal); R92.333 Mammographic heterogeneous density, bilateral breasts; Z78.0 Asymptomatic menopausal state
CPT/HCPCS: 77066; 76642; G0279; 77062

== ENCOUNTER → 2023-11-30 | Day surgery (SDC) | payer MEDICARE ==
--- NOTE | 2024-01-10 14:12 | USB ---
EXAM: US biopsy breast VAD LT DATE OF EXAM: 11/30/2023 COMPARISON: DESCRIPTION: The procedure of ultrasound guided core biopsy was explained to the patient. Benefits, alternatives, and risks were discussed. An informed consent was then obtained. A timeout was performed. The patient was placed in supine positioning for imaging and for the procedure. The overlying skin was prepped and draped in usual sterile fashion. 1% Lidocaine was used as anesthetic into the skin and 1% lidocaine with epinephrine in the subcutaneous tissue up to area of concern in the left breast. A small skin rylan was made with surgical scalpel. Under ultrasound guidance, a 12-gauge vacuum assisted biopsy gun device was used to obtain 2 core samples. The biopsy device was placed over an arterial structure adjacent to the lesion. No hemorrhage was identified upon completion of the sampling. A biopsy clip was left in lesion. Hydromark butterfly core marker was placed. The patient tolerated the procedure well without any immediate complication. The patient was kept in the radiology department for short stay after the procedure and then discharged home in stable condition. Postprocedure mammogram: The patient was transferred to mammography for physician ordered post procedure mammogram for clip placement verification. Clip is identified in the postprocedure mammogram. Impression: Successful ultrasound guided core biopsy of area of concern in the left breast, full pathology results to follow. Recommendations: 1. Recommendations are pending pathology results. Pathology Results: Malignant Pathology and radiology were reviewed. Findings are concordant. 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 Slides are unavailable for review from this prior case. A 11-09-23 mammogram states there is an irregular nodular density within the left upper quadrant 13 cm from the nipple which may reflect a site of a lymph node, by imaging findings. Examination of the current case reveals lymphoid tissue involved by metastatic carcinoma. In order to characterize the process, immunostains are performed with appropriate controls on the tissue block. CK7 and PAX8 are both positive within tumor cells, and CA-125 is focally positive within tumor cells. ANGELA-3 staining is positive within tumor, which has been shown to occur in rare cases of ovarian and endometrial carcinoma. The findings seen are suggestive of metastatic gynecologic/Mullerian carcinoma and may be patient admitting representative of the patient's known ovarian primary. Metastatic breast carcinoma is less likely but cannot be entirely excluded. Intradepartmental consultation with Dr. Adarsh Young is in agreement with the assessment of malignancy. Recommendation Surgical consult of the left breast. MTDD
== END ==
LOC: RADUSWWP 12:21
PROVIDERS: ATTEND Internal Medicine Hematology & Oncology
DX: R92.8 Other abnormal and inconclusive findings on diagnostic imaging of breast
CPT/HCPCS: 19083; A4648; 77065; 88305; 88341; 88342

== ENCOUNTER → 2023-12-06 | Outpatient (CLI) | payer MEDICARE ==
[2023-12-06 13:34] LABS: African American GFR (CKD) >90 (>60 ml/min/1.73 sqM); Blood Urea Nitrogen 16 mg/dL (7-17); Non-African American GFR(CKD) >90 (>60 ml/min/1.73 sqM)
--- NOTE | 2023-12-07 10:50 | CT ---
EXAMINATION TYPE: CT Chess, abdomen and pelvis w con CT DLP: 1799 mGycm, Automated exposure control for dose reduction was used. DATE OF EXAM: 12/06/2023 3:05 PM COMPARISON: CT chest abdomen pelvis August 30, 2023 CLINICAL INDICATION:Female, 68 years old with history of C56.9 OVARIAN CA; PHH, ovarian ca. Prior in pacs. Technique: CT Chest Abd Pelvis w con; Multiple axial images were obtained. Two-dimensional coronal an d sagittal reconstructions were obtained. Contrast used:100ml mL of Isovue 300 with IV Contrast, Oral contrast used: with Oral Contrast Findings: CHEST: LUNGS/ PLEURA: Percutaneous, small caliber chest tube enters in the anterolateral right thoracic appr [facility]. The tube traverses the right hemithorax and travels inferiorly terminating near the base of the right thorax. Right lung aeration is slightly improved compared to the prior study. The left lung i s predominantly clear. Right-sided hydropneumothorax with slightly decreased pneumothorax compared to the prior study from [facility] 2023. Foci of segmental atelectasis in the right upper lobe. AIRWAY: Patent and unremarkable.. HEART: Size within normal limits. MEDIASTINUM: No gross evidence of adenopathy. Shift of mediastinal structures to the right. VASCULATURE: No aortic aneurysm. MUSCULOSKELETAL: No acute osseous abnormalities. SOFT TISSUES/LYMPH NODES: Unremarkable. LOWER NECK: No significant findings. ABDOMEN: ABDOMEN LIVER: Subdiaphragmatic fluid collection including around the liver and pockets of fluid in the abdom en. GALLBLADDER AND BILE DUCTS: Unremarkable. PANCREAS: Unremarkable. SPLEEN: Intrinsically normal, but surrounded by fluid. ADRENAL GLANDS: Unremarkable. KIDNEYS AND URETERS: No evidence of hydronephrosis or renal calculus. The ureters are unremarkable. PELVIS BLADDER: Unremarkable REPRODUCTIVE: Unremarkable. ABDOMEN & PELVIS STOMACH AND BOWEL: Unusual, abnormal appearance of fluid-filled cecum and ascending colon. No evidenc e of bowel obstruction. PERITONEUM: No evidence of pneumoperitoneum or free fluid. VASCULATURE: No evidence of aortic aneurysm. MUSCULOSKELETAL: No acute osseous abnormalities LYMPH NODES: No gross evidence for lymphadenopathy. SOFT TISSUE/ABDOMINAL WALL: Unremarkable IMPRESSION: Percutaneous, small caliber chest tube enters in the anterolateral right thoracic approach. The tube traverses the right hemithorax and travels inferiorly terminating near the base of the right thorax. Right lung aeration is slightly improved compared to the prior study. Right-sided hydropneumothorax with decreased pneumothorax compared to the prior study from August 2023 . Foci of segmental atelectasis in the right upper lobe. Mediastinal structures are shifted toward the right. Subdiaphragmatic fluid collection including around the liver and pockets of fluid in the abdomen ruba lar to prior exam. Unusual, abnormal appearance of fluid-filled cecum and ascending colon. Indeterminate.
== END | disposition home or self-care (01) ==
LOC: RADCTMAIN 12:47
PROVIDERS: ATTEND Internal Medicine Hematology & Oncology
DX: C56.9 Malignant neoplasm of unspecified ovary (principal); J93.83 Other pneumothorax; J98.11 Atelectasis; R93.3 Abnormal findings on diagnostic imaging of other parts of digestive tract; Z46.89 Encounter for fitting and adjustment of other specified devices
CPT/HCPCS: 82565; 84520; 71260; 74177; 36415; Q9967

== ENCOUNTER → 2024-03-12 | Outpatient (CLI) | payer MEDICARE ==
[2024-03-12 12:51] LABS: African American GFR (CKD) >90 (>60 ml/min/1.73 sqM); Blood Urea Nitrogen 12 mg/dL (7-17); Non-African American GFR(CKD) >90 (>60 ml/min/1.73 sqM)
--- NOTE | 2024-03-15 20:12 | CT ---
EXAMINATION TYPE: CT ChestAbdPelvis w con DATE OF EXAM: 03/12/2024 INDICATION: Ovarian CA. COMPARISON: 12/06/2023 CT DLP: 1393.3 mGycm CONTRAST: Performed with Oral Contrast and with IV Contrast, patient injected with 100ml mL of Isovue 370. TECHNIQUE: Axial images at 5 mm thick sections. Reconstructed images in the coronal plane. Delayed images through the kidneys. FINDINGS: CT CHEST: Right axillary adenopathy appears to be present measuring 5.0 x 2.4 cm. This is increased f rom comparison. Portion of the thyroid visualized is normal. There is a right upper lobe consolidation. Large right pleural collection is present. Scattered areas within this region. Drainage catheter is present. Correlate for empyema. Findings appear chronic fro m comparison No enlarged mediastinal or hilar adenopathy is evident. The ascending aorta diameter at the level of the main pulmonary artery is 3.3 cm. The main pulmonary artery diameter at the bifurcation is 3.[address] ABDOMEN: Some fluid may be adjacent to the liver is forming the superior lateral border of the nicole er. This is stable from comparison. Liver: Normal Spleen: Normal Pancreas: Normal Adrenal glands: The adrenal glands are normal. Gallbladder: Normal Kidneys: No masses are evident. No hydronephrosis is present. No cysts are present. Aorta: Vascular calcification is within the aorta. Inferior vena cava: Normal. CT PELVIS: Loops of bowel within the abdomen and pelvis are normal. There are loops of bowel which are incom pletely distended or lack oral contrast limiting their evaluation. Appendix: Not identified. No dilated tubular structure or inflammatory changes evident. Urinary bladder: Normal. Genitourinary structures: Uterus and ovaries are not identified. No free fluid is within the pelvis. Some free fluid is within the paracolic gutters Osseous structures: There is a sclerotic area within the right lateral L3 vertebral body. Facet degen erative changes are present. Sclerotic areas within the superior left S1 vertebral level. These appea r to be developing from comparison. IMPRESSION: 1. Empyema versus right [place] fibrothorax. Findings with less air present within comparison. 2. Suspected loculated fluid adjacent to the liver. Some free fluid is within the paracolic gutters. This appears stable from comparison. 3. Developing sclerotic lesions within the L3 and S1 vertebral levels. Sclerotic metastasis should be considered. 4. Increasing size right axillary lymphadenopathy. [facility], , 03/15/2024 8:10 PM
== END | disposition home or self-care (01) ==
LOC: RADCTMAIN 12:03
PROVIDERS: ATTEND Internal Medicine Hematology & Oncology
DX: C56.9 Malignant neoplasm of unspecified ovary (principal); D24.2 Benign neoplasm of left breast; R18.0 Malignant ascites; I10 Essential (primary) hypertension; Z71.3 Dietary counseling and surveillance; R59.0 Localized enlarged lymph nodes; G35 Multiple sclerosis
CPT/HCPCS: 82565; 84520; 71260; 74177; 36415; Q9967

== ENCOUNTER 2024-05-13 12:33 | Emergency (ER) | payer MEDICARE ==
[2024-05-13 12:49] VITALS: RESP 18
--- NOTE | 2024-05-13 15:50 | ED ---
General Adult HPI - General Source: patient Mode of arrival: ambulatory Limitations: no limitations <Marquez Garrett - Last Filed: 05/13/24 15:49> <Tigist Lindsey - Last Filed: 05/14/24 18:45> - General Chief complaint: Recheck/Abnormal Lab/Rx Stated complaint: Leaking catheter Time Seen by Provider: 05/13/24 15:49 - History of Present Illness Initial comments: 68-year-old female presenting with chief complaint of leaking from her Pleurx catheter. Patient states that yesterday she bent over and it started leaking. The fluid is brown in color. No pain. (Marquez Garrett) Pt is a pleasant 68 y/o female PMH ovarian CA w/ malignant pleural effusion and indwelling pleurx presenting for increased drainage from around her pleurex after bending over yesterday and noting it to start leaking from around pleurex site. Placed in July of this year by Dr. Sherwood. States that she has not seen Dr. Sherwood since placement however does follow with Dr. Fuentes, who monitors its function. States that since its placement the catheter appears to be functioning well. She denies any new pain, shortness of breath, fevers, chills change in the color or viscosity of the output, surrounding pain or erythema. (Tigist Lindsey) - Related Data Home Medications Medication Instructions Recorded Confirmed carvediloL [Coreg] 25 mg PO HS 12/04/19 02/01/24 B17 500 mg PO BID 07/26/23 02/01/24 C1000 W/Zinc (Dose Unknown) 1 dose PO QAM 07/26/23 02/01/24 Graviola 1,000 mg PO BID 07/26/23 02/01/24 Krill/Om-3/Dha/Epa/Phospho/Ast 500 mg PO QAM 07/26/23 02/01/24 [Krill Oil 600 mg Softgel] Lung Tonic 200 mg PO BID 07/26/23 02/01/24 Quercetin 800 mg PO QAM 07/26/23 02/01/24 Respiratonic 200 mg PO BID 07/26/23 02/01/24 Sennosides [Senokot] 17.2 mg PO HS 07/26/23 02/01/24 Turmeric Root Extract [Turmeric] 600 mg PO QAM 07/26/23 02/01/24 Water Out 400 mg PO QAM 07/26/23 02/01/24 Cannabidiol (Cbd) [Epidiolex] 1 dose PO QAM 07/27/23 02/01/24 Allergies Allergy/AdvReac Type Severity Reaction Status Date / Time No Known Allergies Allergy Verified 05/13/24 12:49 Review of Systems ROS Other: All systems not noted in ROS Statement are negative. <Marquez Garrett - Last Filed: 05/13/24 15:49> ROS Other: All systems not noted in ROS Statement are negative. <Tigist Lindsey - Last Filed: 05/14/24 18:45> ROS Statement: Those systems with pertinent positive or pertinent negative responses have been documented in the HPI. Past Medical History Past Medical History: Cancer, Hypertension, Osteoarthritis (OA) Additional Past Medical History / Comment(s): Per Dr. Sherwood H+P 07/25/23- Rt side malignant pleural effusion. Chemo tx 07/27/23. Ovarian cancer- 2020 had chemo,"overactive bladder"-urinary leakage History of Any Multi-Drug Resistant Organisms: None Reported Past Surgical History: Breast Surgery, Hysterectomy Additional Past Surgical History / Comment(s): Rt lung "I had fliud drained and they tested the cells and it showed cancer cells- Jun 2023. rt breast lumpectomy(fibroids), left eye intac implant, rt knee arthroscopy. Past Anesthesia/Blood Transfusion Reactions: Previous Problems w/ Anesthesia, Postoperative Nausea & Vomiting (PONV) Additional Past Anesthesia/Blood Transfusion Reaction / Comment(s): "took a long time to come out". No hx blood transfusion. Past Psychological History: No Psychological Hx Reported Smoking Status: Never smoker Past Alcohol Use History: None Reported Past Drug Use History: None Reported - Past Family History Mother Family Medical History: Cancer Father Family Medical History: Cancer Additional Family Medical History / Comment(s): Prostate cancer Sister(s) Family Medical History: Cancer Additional Family Medical History / Comment(s): ovarian cancer. Mother ovarian cancer. Brother(s) Family Medical History: Cancer Additional Family Medical History / Comment(s): kidney cancer <Marquez Garrett - Last Filed: 05/13/24 15:49> General Exam Limitations: no limitations <Marquez Garrett - Last Filed: 05/13/24 15:49> <Tigist Lindsey - Last Filed: 05/14/24 18:45> - General Exam Comments Initial Comments: Visual Physical Exam Vital signs reviewed General: Well-appearing, nontoxic, no acute distress. Head: Normocephalic, atraumatic Eyes: PERRLA, EOMI ENT: Airway patent Chest: Nonlabored breathing Skin: No visual rash, normal skin tone Neuro: Alert and oriented 3 Musculoskeletal: No gross abnormalities (Marquez Garrett) PE: CONSTITUTIONAL: No apparent distress, well appearing SKIN: Warm, dry, no jaundice, hives or petechiae. Scant erythema underneath where adhesive tape previously was on pt's abdomen, holding diaper in place over pleurex, otherwise the PleurX site itself is well-healed, there is no surrounding erythema or purulent discharge or swelling, small amount of clear yellow-brown fluid noted on pad covering site and w/in pleurex drain tube, the fluid is not foul-smelling/does not have a strong odor EYES: Pupils are equally round, extraocular movements intact without nystagmus, clear conjunctiva, non-icteric sclera HENT: Normocephalic, atraumatic, moist mucus membranes, oropharynx clear without exudates NECK: , Full range of motion, normal appearance PULMONARY: Clear to auscultation without wheezes, rhonchi, or rales, normal excursion, no accessory muscle use and no stridor CARDIOVASCULAR: Regular rate, rhythm, normal S1 and S2. No appreciated murmurs, rubs or gallops. Strong radial pulses with intact distal perfusion. No lower extremity edema GASTROINTESTINAL: Soft, active bowel sounds throughout, non-tender, non- distended, no palpable masses, no rebound or guarding. No hepatosplenomegaly, Pleurx exiting from the right upper quadrant without induration, palpable mass or tenderness to palpation around site MUSCULOSKELETAL: Extremities have no gross deformity, no edema, redness, or swelling. NEUROLOGIC:_a/o x 3, GCS 15, normal mentation and speech. Moves all extremities x 4 without motor or sensory deficit PSYCHIATRIC:_normal mood and affect, thought process is clear and linear (Engl christine,Tigist) Course Vital Signs 05/13/24 05/13/24 12:46 18:40 Temperature 98.1 F 98.0 F Pulse Rate 78 76 Respiratory 18 18 Rate Blood Pressure 146/88 144/80 O2 Sat by Pulse 97 97 Oximetry Procedures - Laceration Laceration #1 Consent Obtained: verbal consent Indication: other (pleurex site opening ) Site: abdomen Description: linear Depth: simple, single layer Anesthetic Used: lidocaine 1%, with epi Anesthesia Technique: local infiltration Amount (mls): 3 Type of Sutures: nylon Size of Sutures: 3-0 Number of Sutures: 2 Technique: simple, interrupted Complications: pain Patient Tolerated Procedure: no complications <Tigist Lindsey - Last Filed: 05/14/24 18:45> Medical Decision Making <Marquez Garrett - Last Filed: 05/13/24 15:49> <Tigist Lindsey - Last Filed: 05/14/24 18:45> - Medical Decision Making I performed the quick note portion of this visit, electronically signed Marquez Garrett PA-C (Marquez Garrett) Was pt. sent in by a medical professional or institution (FRANCINE Martino, SPACE SCIENCES DIRECTOR, urgent care, hospital, or custodial...) When possible be specific @ -No Did you speak to anyone other than the patient for history (EMS, parent, family, police, friend...)? What history was obtained from this source @ -No Did you review nursing and triage notes (agree or disagree)? Why? @ -I reviewed and agree with nursing and triage notes Were old charts reviewed (outside hosp., previous admission, EMS record, old EKG, old radiological studies, urgent care reports/EKG's, custodial records)? Report findings @ -Medical records reviewed-CT chest abdomen pelvis was obtained in 03/12/2024 to evaluate progression of patient's ovarian cancer, during that time a large right pleural collection is noted in the right upper lobe of the lung with drainage catheter present, appear to be chronic findings, fluid adjacent to the liver and within the paracolic gutters that appear to be stable. Differential Diagnosis (chest pain, altered mental status, abdominal pain women, abdominal pain men, vaginal bleeding, weakness, fever, dyspnea, syncope, headache, dizziness, GI bleed, back pain, seizure, CVA, palpatations, mental health, musculoskeletal)? Differential diagnose remains broad over top considerations include displacement of Pleurx catheter, fluid extravesaton 2/2 widened skin opening around Pleurx site, cellulitis this is not all-inclusive list. I did consider abscess from patient as well as however patient is afebrile with no new symptoms, no overlying erythema, palpable fluctuant mass or purulent discharge from region surrounding catheter. Catheter does not appear to be adherent to surrounding skin or structures. EKG interpreted by me (3pts min.). @ -As above X-rays interpreted by me (1pt min.). X-rays obtained by triage provider reviewed by myself, appears to show right lung pulmonary consolidation, Pleurx catheter appears to be in appropriate placement, no free air within the abdomen; Read by radiologist is near complete opacification of the right hemithorax slightly combination of lung infiltrate/atelectasis and a large effusion without significant interval change, right sided drainage catheter unchanged in position CT interpreted by me (1pt min.). @ -None done U/S interpreted by me (1pt. min.). @ -None done What testing was considered but not performed or refused? (CT, X-rays, U/S, labs)? Why? @ -None What meds were considered but not given or refused? Why? @ -None Did you discuss the management of the patient with other professionals (professionals i.e. , PA, SPACE SCIENCES DIRECTOR, lab, RT, psych nurse, social service agency director, efficiency engineer, teacher, infantry officer, field nurse case manager)? Give summary @ -No Was smoking cessation discussed for >3mins.? @ -No Was critical care preformed (if so, how long)? @ -No Were there social determinants of health that impacted care today? How? (Nalini elessness, low income, unemployed, alcoholism, drug addiction, transportation, low edu. Level, literacy, decrease access to med. care, half-way, rehab)? @ -No Was there de-escalation of care discussed even if they declined (Discuss DNR or withdrawal of care, Hospice)? @ -No What co-morbidities impacted this encounter? (DM, HTN, Smoking, COPD, CAD, Cancer, CVA, ARF, Chemo, Hep., AIDS, mental health diagnosis, sleep apnea, morbid obesity)? @Ovarian cancer with malignant pleural effusion Was patient admitted / discharged? Hospital course, mention meds given and route, prescriptions, significant lab abnormalities, going to OR and other pertinent info. @ discharged-patient is a pleasant 68-year-old female past medical history of ovarian cancer with malignant pleural effusion and indwelling Pleurx presenting today for draining from around her Pleurx site. Started yesterday, clear yellow-brown, same color has been since Pleurx drainage, per pt. Denies fevers, chills, nausea vomiting, abdominal pain. No increasing redness. No new symptoms. Discussed with patient plan to suture skin near Pleurx drain closed so as to decrease fluid leakage around it. She is agreeable with plan of care. 2 Sutures were placed at base of pleurex site superfically to further close tract around drain and decrease drainage. Patient advised to follow up with PCP and Dr. Sherwood for removal within 5-7 days. In my medical judgment there is currently no evidence of an immediate life- threatening or surgical condition. Discharge is therefore indicated at this time. Discharge treatment instructions, follow up instructions, and appropriate emergency department return precautions were discussed with the patient and/or medical decision maker. Patient and/or medical decision maker expressed understanding of and agreed with the treatment plan, follow up instructions, and emergency department return precaution. All patient's and/or medical decision maker's questions were answered. Undiagnosed new problem with uncertain prognosis? @ -No Drug Therapy requiring intensive monitoring for toxicity (Heparin, Nitro, Insulin, Cardizem)? @ -No Were any procedures done? @ -No Diagnosis/symptom? @drainage from pleurex site Acute, or Chronic, or Acute on Chronic? Acute Uncomplicated (without systemic symptoms) or Complicated (systemic symptoms)? @Uncomplicated Exacerbation, Progression, or Severe Exacerbation? @ -No Poses a threat to life or bodily function? How? (Chest pain, [place], [place], pneumonia, PE, COPD, DKA, ARF, appy, cholecystitis, CVA, Diverticulitis, Homicidal, Suicidal, threat to staff... and all critical care pts) @ -No (Tigist Lindsey) Disposition <Marquez Garrett - Last Filed: 05/13/24 15:49> Is patient prescribed a controlled substance at d/c from ED?: No <Tigist Lindsey - Last Filed: 05/14/24 18:45> Clinical Impression: Drainage from surgical wound Disposition: HOME SELF-CARE Condition: Good Instructions (If sedation given, give patient instructions): How to Care for Your Chest or Abdominal Catheter (ED) Additional Instructions: Every disease is a spectrum and a small chance still exists that a serious condition could develop, for this reason, please monitor yourself closely for new, changing or worsening symptoms, symptoms that persist beyond [48 hours], new redness, increased drainage, purulent drainage or strong smell to drainage, bloody drainage, no abdominal pain chills, [fever], inability to tolerate/keep down fluids or your medications, inability to follow up with outpatient providers as instructed and should you experience these symptoms or should you have any further concerns for your wellbeing please return to the ED or call 911 immediately. Please follow-up with Dr. Sherwood by this coming Monday for suture removal and reassessment of pleurex site, sooner if possible. Sutures should be removed in 5-7 days PLEASE call your primary care physician as soon as possible to arrange / discuss plan for followup appointment. Appointment in the next 1-3 days is strongly encouraged if possible. PLEASE let us know here before you leave if there is anything further we can do to be of any assistance. Take care and feel Better! Referrals: Jay Hazel DO [Primary Care Provider] - 1-2 days
--- NOTE | 2024-05-13 16:25 | XR ---
Chest, 2 view. HISTORY: Catheter leaking COMPARISON: 03/12/2024 TECHNIQUE: PA and lateral views the chest are obtained. FINDINGS: There is near complete opacification of right hemithorax likely combination of lung infiltrate/atelec tasis and large pleural effusion. There is been no significant interval change. There is a right-side d drainage catheter unchanged in position. The left lung remains clear. The pulmonary vasculature is not congested. The osseous structures are i ntact IMPRESSION: No change in the marked cardiopulmonary disease involving the right lung as described above. [facility], , 05/13/2024 4:23 PM
--- NOTE | 2024-05-13 16:31 | XR ---
Abdomen, single view. HISTORY: Catheter leaking. COMPARISON: None TECHNIQUE: Upright view the abdomen was obtained. FINDINGS: There is a large right pleural effusion and a right pleural drainage catheter.. The bowel gas pattern is nonspecific and there is no evidence of obstruction. No suspicious abdominal or pelvic calcifications are seen. The osseous structures are grossly intact. IMPRESSION: 1. Nonspecific bowel gas pattern. 2. Large right pleural effusion with right pleural drainage catheter. [facility], , 05/13/2024 4:28 PM
[2024-05-13] MEDS: LIDOCAINE 1%-EPI 1:100,000 20 ML VIAL SUBMUCOSAL STA (17:35)
[2024-05-13 18:41] VITALS: BP 144/80; PULSE 76; TEMP 98
== END 2024-05-13 18:42 | disposition home or self-care (01) ==
LOC: EC 12:33
DX: T81.31XA Disruption of external operation (surgical) wound, not elsewhere classified, initial encounter (principal)
CPT/HCPCS: 71046; 74018; 99283

== ENCOUNTER → 2024-05-22 | Outpatient (CLI) | payer MEDICARE ==
--- NOTE | 2024-05-22 15:13 | XR ---
EXAMINATION TYPE: XR chest 2V DATE OF EXAM: 05/22/2024 2:25 PM COMPARISON: 05/13/2024 CLINICAL INDICATION: Female, 68 years old with history of J90 PLEURAL EFFUSION, NOT ELSEWHERE CLASSIF IED, , TECHNIQUE: Frontal and lateral views FINDINGS: Right-sided pleural catheter has been removed. Right heart margin obscured by pleural parenchymal opa city. Consistent pleural-parenchymal opacification throughout the right hemithorax is similar. Mild i nterstitial prominence throughout the left lung is similar as well. IMPRESSION: Extensive pleural parenchymal opacities throughout the right hemithorax are relatively similar. The p revious right-sided pleural catheter has been removed. [facility], , 05/22/2024 3:10 PM
== END | disposition home or self-care (01) ==
LOC: RADXRMAIN 14:10
PROVIDERS: ATTEND Thoracic Surgery (Cardiothoracic Vascular Surgery)
DX: J90 Pleural effusion, not elsewhere classified (principal); R91.8 Other nonspecific abnormal finding of lung field
CPT/HCPCS: 71046

== ENCOUNTER → 2024-05-30 | Outpatient (CLI) | payer MEDICARE ==
--- NOTE | 2024-05-30 12:52 | XR ---
EXAMINATION TYPE: XR chest 2V DATE OF EXAM: 05/30/2024 12:48 PM COMPARISON: Chest radiographs from 05/22/2024 CLINICAL INDICATION: Female, 68 years old with history of J90 PLEURAL EFFUSION, NOT ELSEWHERE CLASSIF IED; [facility] TECHNIQUE: XR chest 2V Frontal and lateral views of the chest. FINDINGS: Lungs/Pleura: Large right pleural effusion with near complete opacification of the right hemithorax. No left pleural effusion. No pneumothorax visualized. Pulmonary vascularity: Unremarkable. Heart/mediastinum: Cardiomediastinal silhouette is unremarkable. Musculoskeletal: No acute osseous pathology. IMPRESSION: Large or pleural effusion, similar to prior. [facility], , 05/30/2024 12:50 PM
== END | disposition home or self-care (01) ==
LOC: RADXRMAIN 12:30
PROVIDERS: ATTEND Thoracic Surgery (Cardiothoracic Vascular Surgery)
DX: J90 Pleural effusion, not elsewhere classified (principal)
CPT/HCPCS: 71046; 99213

== ENCOUNTER 2024-05-31 07:21 | Day surgery (SDC) | payer MEDICARE ==
[2024-05-31 08:18] VITALS: TEMP 98.2
[2024-05-31] MEDS: ONDANSETRON 4 MG/2 ML VIAL IVP STA (08:41)
[2024-05-31] MEDS: LACTATED RINGERS 500 ML IV ONE (08:42)
[2024-05-31] MEDS: DEXAMETHASONE SOD PHOSPHATE 4 MG/ML 1 ML VIAL IVP STA (08:42)
[2024-05-31] MEDS: LIDOCAINE 1% INJ 10MG/ML (5 ML VIAL-PF) SQ ONE ×2 (09:09→09:34)
[2024-05-31] MEDS ORDERED: MIDAZOLAM 2 MG/2 ML VIAL ONE (09:21)
[2024-05-31] MEDS ORDERED: PROPOFOL 10 MG/ML 20 ML VIAL IV ONE (09:21)
[2024-05-31] MEDS: SODIUM CHLORIDE 0.9% 50 ML with ceFAZolin 2,000 MG IV ONE (09:24)
--- NOTE | 2024-05-31 10:13 | P.OP ---
Date of Procedure: 05/31/24 Preoperative Diagnosis: Right malignant pleural effusion Postoperative Diagnosis: Same Procedure(s) Performed: Right Pleurx catheter placement with fluoroscopy Implants: Pleurx catheter Anesthesia: MAC Surgeon: Inocente Sanz Estimated Blood Loss (ml): 2 Pathology: none sent Condition: stable Disposition: PACU Indications for Procedure: 68-year-old female with metastatic ovarian carcinoma underwent additional Pleurx placement in July 2023. She returned to the office a week ago at which time PleurX catheter had pulled back and the cough was extruded from the skin. I had significant concern for possible infection of the pleural space and felt the best thing to do was removed the Pleurx catheter. It was explained to the patient prior to doing this that most likely a new Pleurx catheter would need to be placed. This all proceeded without event. The patient presented to the office yesterday with increased shortness of breath. Chest x-ray demonstrated somewhat worse appearance with chronic loculated right pleural effusion. We placement of the Pleurx catheter was recommended. Operative Findings: There is a loculated space in the right pleural space with large amount of very thick fluid present. PleurX catheter was placed easily within this. 200 cc was drained. Description of Procedure: Patient was brought to the operating room and placed supine on the table. IV sedation was given. The right lower chest and upper abdomen were sterilely prepped and draped. 1% lidocaine anesthesia was utilized. Pleural space was punctured and thick yellow pleural fluid was obtained. Guidewire was placed into the pleural space. The site was enlarged with an 11 blade and a counterincision was made in the right upper quadrant. PleurX catheter was tunneled from the counterincision to the puncture incision and the cuff was positioned just under the skin at the exit site. Introducer and dilator were placed into the chest cavity under fluoroscopic guidance over the wire and the wire and dilator removed. PleurX catheter was introduced into the chest through the introducer sheath. It was connected to suction. Entry site was closed with layers of Vicryl suture. Catheter was secured at the exit site with 2-0 silk suture. Once the catheter finished draining it was capped and placed in a standard Pleurx dressing. Skin glue was applied to the entry site incision. There was a firm mass at the previous entry site which the patient had noticed and was concerned about. I did put a needle in this but did not obtain any fluid.
--- NOTE | 2024-05-31 10:19 | FL ---
EXAMINATION TYPE: FL guided central line placemt DATE OF EXAM: 05/31/2024 10:04 AM COMPARISON: Pre Operative Images if available both CT/MRI or plain film CLINICAL INDICATION: Female, 68 years old with history of PLEUX CATH; TECHNIQUE: FL guided central line placemt, multiple fluoroscopic images provided for procedure. Total fluoroscopy time: 7.9 seconds Total submitted images to PACS: 2 DAP: [id number] mGym2 Gycm2 uGym2 cGycm2 or equivalent. FINDINGS: ION bronchoscopy images demonstrate Pleurx catheter placement. No immediate complications identified, no pneumothorax identified. IMPRESSION: 1. No evidence for intraoperative complication. 2. Please see the operative/procedural note for further details. [facility], , 05/31/2024 10:17 AM
--- NOTE | 2024-05-31 10:33 | XR ---
EXAMINATION TYPE: XR chest 1V portable DATE OF EXAM: 05/31/2024 10:26 AM COMPARISON: Chest radiographs from 05/30/2024 CLINICAL INDICATION: Female, 68 years old with history of Status postplacement of right Pleurx cathet er; TECHNIQUE: XR chest 1V portable Frontal view of the chest. FINDINGS: Lungs/Pleura: Interval placement of a Pleurx catheter. Large right pleural effusion with near complet e opacification of the right hemithorax. No left pleural effusion. No pneumothorax visualized. Pulmonary vascularity: Unremarkable. Heart/mediastinum: Cardiomediastinal silhouette is unremarkable. Musculoskeletal: No acute osseous pathology. IMPRESSION: Pleurx catheter placement with rather large right pleural effusion. [facility], , 05/31/2024 10:30 AM
[2024-05-31 10:40] VITALS: RESP 20
[2024-05-31 11:42] VITALS: BP 135/74; PULSE 77
== END 2024-05-31 11:45 | disposition home health service (06) ==
LOC: OR 07:21
PROVIDERS: ATTEND Thoracic Surgery (Cardiothoracic Vascular Surgery)
DX: C56.9 Malignant neoplasm of unspecified ovary (principal); J91.0 Malignant pleural effusion; I10 Essential (primary) hypertension; M19.90 Unspecified osteoarthritis, unspecified site; K21.9 Gastro-esophageal reflux disease without esophagitis; Z46.82 Encounter for fitting and adjustment of non-vascular catheter; Z90.11 Acquired absence of right breast and nipple; Z79.899 Other long term (current) drug therapy
CPT/HCPCS: 32550; 75989; 71045; J2250; J1100; J2405; J0690; J2003; J2704; 77001